=== PATIENT | female | born 1970 | race American Indian/Alaskan Native ===

== ENCOUNTER 2021-08-02 12:41 | Inpatient (IN) | payer OTHER ==
[2021-08-02] MEDS ORDERED: DEXTROSE 50% IN WATER (25GM) 50 ML SYRINGE IV ONE ×4 (12:45→18:49)
--- NOTE | 2021-08-02 12:59 | Emergency Department Report ---
ED Neuro Deficit HPI - General Stated Complaint: POSS CVA Time Seen by Provider: 08/02/21 12:52 - History of Present Illness Initial Comments: Patient presents by EMS for concern of stroke. History is obtained from the patient, EMS, and from family. In essence, the patient was at home with family. They were sitting and conversing. She started complaining of the right side of her tongue feeling numb. The family stated that her right side "went out." This was similar to her prior stroke. They called an ambulance and have the patient transported here. EMS states that the patient seemed more somnolent. They had heard that there was dysarthria and slurred speech. They did not notice a flaccid paralysis on the right. Patient seemed to be more somnolent for EMS. She was transported here. IV had been established. Patient provides minimal history. She continues to state that she does not feel right. She cannot provide any other cogent history at this time. Time of onset was 12 PM based on EMS and family report. Family states that the patient had complained of fatigue over the last week. She could literally get up and go to the bathroom and feel tired and fatigued. She had complained of fatigue today as well. - Related Data Allergies/Adverse Reactions: Allergies Allergy/AdvReac Type Severity Reaction Status Date / Time No Known Allergies Allergy Verified 08/02/21 14:02 ED Review of Systems ROS: Stated complaint: POSS CVA Other details as noted in HPI Comment: All other systems reviewed and negative Constitutional: denies: fever Eyes: denies: vision change ENT: denies: throat pain Respiratory: denies: cough Cardiovascular: denies: chest pain Endocrine: denies: unexplained weight loss Gastrointestinal: denies: vomiting, diarrhea Genitourinary: denies: dysuria Musculoskeletal: denies: back pain Skin: denies: rash Neurological: as per HPI Hematological/Lymphatic: easy bruising ( Due to blood thinners) ED Past Medical Hx - Past Medical History Hx Hypertension: Yes Hx CVA: Yes - Surgical History Past Surgical History?: Yes Additional Surgical History: thrombectomy - Family History Family history: hypertension ED Neuro Physical Exam - General Limitations: Altered Mental Status ( somnolent), Other ( pulse ox was noted and normal) General appearance: in no apparent distress, other ( somnolent but arousable) Suspected Stroke: No - Head Head exam: Present: atraumatic, other ( mild right facial droop. This is at baseline according to family.) - Eye Eye exam: Present: normal appearance, PERRL, EOMI. Absent: scleral icterus - ENT ENT exam: Present: mucous membranes dry, normal external ear exam - Neck Neck exam: Present: normal inspection. Absent: meningismus - Respiratory Respiratory exam: Present: normal lung sounds bilaterally. Absent: respiratory distress - Cardiovascular Cardiovascular Exam: Present: regular rate, normal rhythm - GI/Abdominal GI/Abdominal exam: Present: soft. Absent: tenderness - Extremities Exam Extremities exam: Present: normal capillary refill. Absent: pedal edema - Back Exam Back exam: Absent: CVA tenderness (R), CVA tenderness (L) - Neurological Exam Neurological exam: Present: other ( Somnolent. She does move all extremities.) - NIHSS Assessment Interval: Baseline 1a. Level of Consciousness: arousable/minor stimuli 1b. LOC Questions: answers both correctly 1c. LOC Commands: performs tasks correctly 2. Best Gaze: normal 3. Visual: no visual loss 4. Facial Palsy: minor paralysis 5b. Motor Arm Right: no drift 5a. Motor Arm Left: no drift 6a. Motor Leg Left: no drift 6b. Motor Leg Right: no drift 7. Limb Ataxia: absent 8. Sensory: mild/moderate sensory loss 9. Best Language: mild/moderate aphasia 10. Dysarthria: mild/moderate dysarthria 11. Extinction/Inattention: no abnormality Total Score: 5 Stroke Severity: Moderate Stroke - Psychiatric Psychiatric exam: Present: flat affect - Skin Skin exam: Present: warm, dry ED Course Vital Signs 08/02/21 08/02/21 08/02/21 12:51 13:04 13:49 Pulse Rate 65 58 L Respiratory 19 13 Rate Blood Pressure 163/88 O2 Sat by Pulse 100 97 Oximetry 08/02/21 08/02/21 14:01 14:15 Pulse Rate 53 L 59 L Respiratory 15 19 Rate Blood Pressure 160/98 163/88 O2 Sat by Pulse 98 98 Oximetry - Reevaluation(s) Reevaluation #1: 08/02/21 12:55 Patient was seen upon EMS arrival. D50 was administered based on Accu-Chek. History is obtained from family. Patient was taken to CT. Based on the fact that she is on a DOAC, there would be no indication for TPA. Reevaluation #2: 08/02/21 14:45 CT have been discussed with the radiologist and with neurology. We agreed that there is no indication for thrombolytic therapy. Case was discussed with Dr. Sullivan who will admit. Family was updated. [facility] had been notified. - Lab Data Result diagrams: 08/02/21 12:48 08/02/21 12:48 Lab Results 08/02/21 08/02/21 08/02/21 Range/Units 12:48 12:48 12:48 WBC 5.4 (4.5-11.0) K/mm3 RBC 4.18 (3.65-5.03) M/mm3 Hgb 12.6 (10.1-14.3) gm/dl Hct 36.9 (30.3-42.9) % MCV 88 (79-97) fl MCH 30 (28-32) pg MCHC 34 (30-34) % RDW 16.1 H (13.2-15.2) % Plt Count 198 (140-440) K/mm3 Lymph % (Auto) 34.1 (13.4-35.0) % [place] % (Auto) 6.6 (0.0-7.3) % Eos % (Auto) 1.0 (0.0-4.3) % Baso % (Auto) 0.4 (0.0-1.8) % Lymph # (Auto) 1.8 (1.2-5.4) K/mm3 [place] # (Auto) 0.4 (0.0-0.8) K/mm3 Eos # (Auto) 0.1 (0.0-0.4) K/mm3 Baso # (Auto) 0.0 (0.0-0.1) K/mm3 Seg Neutrophils % 57.9 (40.0-70.0) % Seg Neutrophils # 3.1 (1.8-7.7) K/mm3 PT 20.7 H (12.2-14.9) Sec. INR 1.61 H (0.87-1.13) APTT 38.5 H (24.2-36.6) Sec. Thrombin Time 17.6 (15.1-19.6) Sec. Sodium 139 (137-145) mmol/L Potassium 4.0 (3.6-5.0) mmol/L Chloride 104.1 (98-107) mmol/L Carbon Dioxide 23 (22-30) mmol/L Anion Gap 16 mmol/L BUN 7 (7-17) mg/dL Creatinine 0.8 (0.6-1.2) mg/dL Estimated GFR > 60 ml/min BUN/Creatinine Ratio 9 % Glucose 92 (65-100) mg/dL Calcium 9.9 (8.4-10.2) mg/dL Troponin T 0.212 H* (0.00-0.029) ng/mL Triglycerides 76 (2-149) mg/dL Cholesterol 123 (50-199) mg/dL LDL Cholesterol Direct 63 (50-130) mg/dL HDL Cholesterol 45 (40-59) mg/dL Cholesterol/HDL Ratio 2.73 % Rhythm strip: Normal sinus rhythm without ectopy. Monitor observe 10 sec. - EKG Data -: EKG Interpreted by Me When compared to previous EKG there are: previous EKG unavailable 08/02/21 14:45 EKG shows atrial fibrillation at 45. Patient has diffuse artifact noted. There actually appear to be flutter waves consistent with atrial flutter with a variable block instead of atrial fibrillation. QRS is prolonged at 153. Patient has a right bundle branch block. QT corrected is 419. There is no evidence of ST elevation. - Radiology Data Radiology results: report reviewed - Medical Decision Making Patient presented as a possible stroke alert. Based on her presentation, it is unlikely this represents her CVA. She does have an elevated troponin of unclear etiology. Patient does not complain of chest pain. There is no EKG change suggestive of STEMI. At this time, we will proceed with admission here. She would not be considered stable for transfer. Hospitalist is aware. Serial troponins can be completed. There was no evidence of intracranial bleed. She may benefit from MRI. Critical Care Time: No Critical care attestation.: If time is entered above; I have spent that time in minutes in the direct care of this critically ill patient, excluding procedure time. ED Disposition Clinical Impression: Right sided weakness, Elevated troponin Altered mental status Qualifiers: Altered mental status type: somnolence Qualified Code(s): R40.0 - Somnolence Disposition: 09 ADMITTED INPATIENT Is pt being admited?: Yes Condition: Stable
[2021-08-02 13:12] LABS: Basophils % (Auto) 0.4 % (0.0-1.8); Eosinophils # (Auto) 0.1 K/mm3 (0.0-0.4); Hematocrit 36.9 % (30.3-42.9); Hemoglobin 12.6 gm/dl (10.1-14.3); Lymphocytes # (Auto) 1.8 K/mm3 (1.2-5.4); Lymphocytes % (Auto) 34.1 % (13.4-35.0); Mean Corpuscular HGB Conc 34 % (30-34); Mean Corpuscular Volume 88 fl (79-97); Monocytes # (Auto) 0.4 K/mm3 (0.0-0.8); Monocytes % (Auto) 6.6 % (0.0-7.3); Platelet Count 198 K/mm3 (140-440); Red Blood Count 4.18 M/mm3 (3.65-5.03); Red Cell Distribution Width 16.1 % (13.2-15.2)
[2021-08-02 13:22] LABS: INR 1.61 (0.87-1.13)
[2021-08-02 13:23] LABS: Partial Thromboplastin Time 38.5 Sec. (24.2-36.6); Thrombin Time 17.6 Sec. (15.1-19.6)
--- NOTE | 2021-08-02 13:34 | Cat Scan Report ---
CT HEAD WITHOUT CONTRAST INDICATION / CLINICAL INFORMATION: CODE STROKE PROTOCOL!!! Stroke-like symptoms, Hx of prior stroke. TECHNIQUE: All CT scans at this location are performed using CT dose reduction for ALARA by means of automated exposure control. COMPARISON: None available. FINDINGS: There is no acute intracranial hemorrhage. There is a subacute to chronic appearing infarction in the distribution of the left MCA with hyperdensity seen in the left MCA compatible with thrombus. There is mild exvacuo dilatation of the left lateral ventricle. No hydrocephalus. The paranasal sinuses and mastoid air cells are clear. IMPRESSION: 1. Subacute to chronic appearing infarction in distribution of left MCA. No acute intracranial hemorr janel. If there is concern for acute ischemia, MRI is recommended. IMPORTANT FINDING Time of Communication (QUALITY ASSURANCE SUPERVISOR/CDT): 12:29 PM Licensed Practitioner Receiving Report: Dr. Hammond Signer Name: José Chicas MD Signed: 08/02/2021 1:30 PM Workstation Name: [id number]
[2021-08-02 13:39] LABS: BUN/Creatinine Ratio 9; Blood Urea Nitrogen 7 mg/dL (7-17); Calcium 9.9 mg/dL (8.4-10.2); Hemolysis Index 1
--- NOTE | 2021-08-02 13:50 | Emergency Department Report ---
Blank Doc - Documentation Documentation: [facility] Consult Note # Demographics Consult Type: Acute Stroke Level 1 (0-4.5 hrs) Patient Location: Emergency Room First Name: Tony Last Name: Date of : 1970 Age: 51 Gender: Female Facility: [facility] Time of Initial Page ( Time): 08/02/2021, 12:53 Time of Return Call ( Time): 08/02/2021, 12:53 # HPI History: 51yo F presents with slurred speech, noted first at 1200. does have soem right sided symptoms and speech changes from a prior stroke in february glucose was 68, dextrose was given Context/Pre-existing conditions: pre-existing speech problem # Scores Time of exam and NIHSS ( Time): 08/02/2021, 12:54 Level of Consciousness 1a: [0] = Alert; keenly responsive LOC Questions 1b: [1] = Answers one correctly LOC Commands 1c: [0] = Performs both tasks correctly Best Gaze 2: [0] = Normal Visual 3: [0] = No visual loss Facial Palsy 4: [0] = Normal symmetrical movements Motor Arm Left 5a: [0] = No drift Motor Arm Right 5b: [0] = No drift Motor Leg Left 6a: [0] = No drift Motor Leg Right 6b: [0] = No drift Limb Ataxia 7: [0] = Absent Sensory 8: [0] = Normal Best Language 9: [0] = No aphasia Dysarthria 10: [1] = [id number] dysarthria Extinction and Inattention 11: [0] = No abnormality NIHSS Total: 2 # Exam Mental Status: having some difficulties following commands. medeiros snot appear aphasic, encpehalopathic # Data Head CT: chronic appearing stroke on the left # Assessment Impression: Altered Mental Status # Plan Thrombolytic/Intervention: NOT IV Thrombolysis or IA Intervention candidate Thrombolytic/Intraarterial Exclusion: IV thrombolytic and IA intervention considered but not recommended as this patient's symptoms are not clinically consistent with an assumed diagnosis of stroke Therapy/Evaluation: NPO until swallow evaluation PT/OT evaluation speech/swallow consultation Other: I have discussed my recommendations with the referring provider Additional Recommendations: Metabolic and infectious evaluation. If no cause found then MRI brain for further eval is reasonable # Logistics Telemedicine: Interactive 2 way audio and visual telecommunication technology was utilized during this visit
[2021-08-02 14:00] LABS: Chol/HDL Ratio 2.73 %; HDL Cholesterol 45 mg/dL (40-59); LDL Cholesterol,Direct 63 mg/dL (50-130)
[2021-08-02] MEDS ORDERED: SODIUM CHLORIDE 0.9% 1000 ML 1,000 ML IV ONE (14:00)
--- NOTE | 2021-08-02 14:02 | Cat Scan Report ---
CT angio neck INDICATION / CLINICAL INFORMATION: 51 years Female; CODE STROKE PROTOCOL!!! Stroke-like symptoms, Hx of prior stroke. TECHNIQUE: Thin cut axial images obtained through the head during IV bolus contrast administration. S agittal, coronal, and 3 plane MIP reconstructions performed by the technologist. NASCET type criteria used evaluate stenoses. All CT scans at this location are performed using CT dose reduction for ALAR A by means of automated exposure control. COMPARISON: None available. FINDINGS: CAROTID ARTERIES: There is no significant stenosis involving cervical carotid arteries by NASCET crit eria. The motion and beam hardening degrade the image quality. However, there is focal irregularity of the distal left cervical carotid artery at the level of C2 with linear luminal defect concerning for foca l dissection. This finding is of indeterminate age and correlation be needed given the history of pre vious stroke and any previous outside imaging. Again, there is appear to be significant focal stenosi s. VERTEBRAL ARTERIES: The proximal vertebral arteries are particularly obscured by the degree of motion as well as beam hardening from the dense contrast within the adjacent venous structures at. However, there is no clear CTA evidence of significant stenosis involving visualized cervical vertebral arter ies. 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 ARCH: There is no clear evidence of significant stenosis involving arch vessels. There is development al common origin of the brachiocephalic and left common carotid arteries. ADDITIONAL FINDINGS: Remainder of the surrounding soft tissues are grossly normal. IMPRESSION: There is no CTA evidence of significant focal stenosis involving visualized cervical carotid carotid arteries by NASCET criteria. There is focal irregularity of the distal left cervical carotid artery with linear minimal defect ind icative of focal dissection as detailed above. This finding is of indeterminate age and correlation w ould be needed given the history of previous stroke and any previous outside imaging. 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 Signer Name: Mark Madera MD Signed: 08/02/2021 1:58 PM Workstation Name: [id number]
--- NOTE | 2021-08-02 14:26 | Cat Scan Report ---
CT angio head INDICATION / CLINICAL INFORMATION: 51 years Female; CODE STROKE PROTOCOL!!! Stroke-like symptoms, Hx of prior stroke. TECHNIQUE: Thin cut axial images obtained through the head during IV bolus contrast administration. S agittal, coronal, and 3 plane MIP reconstructions performed by the technologist. NASCET type criteria used evaluate stenoses. Automated exposure control utilized for radiation reduction purposes. COMPARISON: None available. FINDINGS: INTERNAL CAROTID ARTERIES: There is mild calcification involving distal internal carotid arteries wit hout significant stenosis by NASCET criteria. VERTEBROBASILAR SYSTEM: There is developmental hypoplasia the distal right vertebral artery. There is no significant focal stenosis of the basilar artery. CEREBRAL ARTERIES: There is developmental origin of the left posterior cerebral artery. There i s no CTA evidence of significant focal stenosis involving proximal cerebral arteries or visualized ad jacent segments. There is no evidence of large vessel occlusion. There is an older infarct involving the left MCA distribution which correlates with the earlier CT. ANEURYSM: None identified. ADDITIONAL FINDINGS: Remainder of the surrounding soft tissues are grossly normal. IMPRESSION: There is an old left MCA infarct with encephalomalacia which correlates with the earlier CT. There is no clear CTA evidence of acute large vessel occlusion. Signer Name: Mark Madera MD Signed: 08/02/2021 2:22 PM Workstation Name: [id number]
--- NOTE | 2021-08-02 14:45 | History and Physical Report ---
History of Present Illness Chief complaint: Her right side went out History of present illness: 51 YO Female with HTN, CVA, Atrial Fib on Therapeutic anticoagulation presents to ED for evaluation. Patient has dysarthria and provides limited history. Patient states "I think I had a stroke". Patient daughter is at bedside during his exam and interview and provides additional history. As per daughter the patient complained that "her right side went out" this morning. The patient was also noted to have slurred speech. EMS was notified and upon arrival the patient was found to be in distress with a neurologic deficit. A code stroke was called and the patient was subsequently transported to [facility] for further care and evaluation of the aforementioned symptoms. The patient was seen and evaluated in the emergency department. All lab and imaging studies reviewed. Patient found to have clinical symptoms consistent with CVA and was initiated on stroke protocol. Patient also found to have NSTEMI. The patient was continued on therapeutic anticoagulation and admitted to telemetry. Cardiology team consulted in ED. Telemetry neurology consulted in ED. No reports of fever, chills, chest pain, palpitation, productive cough, skin rash, recent contact, or known exposure to COVID-19. No prior admission for review. No medication listed at time of admission for reconciliation. Advanced care planning cond ucted in ED. Past History Past Medical History: atrial fib, hypertension, stroke Past Surgical History: Other (Thrombectomy) Social history: . denies: smoking, alcohol abuse, prescription drug abuse Family history: diabetes, hypertension Medications and Allergies Allergies Allergy/AdvReac Type Severity Reaction Status Date / Time No Known Allergies Allergy Verified 08/02/21 14:02 Active Meds: Active Medications Sodium Chloride (Nacl 0.9% 1000 Ml) 1,000 mls @ 999 mls/hr IV BOLUS ONE Stop: 08/02/21 15:00 Review of Systems ROS unobtainable: due to mental status Exam - Constitutional Vitals: Temp Pulse Resp BP Pulse Ox 59 L 19 163/88 98 08/02/21 14:15 08/02/21 14:15 08/02/21 14:15 08/02/21 14:15 General appearance: Present: mild distress - EENT Eyes: Present: PERRL ENT: clear oral mucosa, hearing decreased - Neck Neck: Present: supple, normal ROM - Respiratory Respiratory effort: normal Respiratory: bilateral: CTA - Cardiovascular Heart Sounds: Present: S1 & S2. Absent: rub, click - Extremities Extremities: pulses symmetrical, No edema Peripheral Pulses: within normal limits - Abdominal General gastrointestinal: Present: soft, non-tender, non-distended, normal bowel sounds Female genitourinary: Present: normal - Musculoskeletal Musculoskeletal: right sided weakness - Psychiatric Psychiatric: cooperative - Neurologic Neurologic: CNII-XII intact, focal deficits, moves all extremities, no gait normal HEART Score - HEART Score Troponin: Troponin T 0.212 ng/mL (0.00-0.029) H* 08/02/21 12:48 Results - Labs CBC & Chem 7: 08/02/21 12:48 08/02/21 12:48 Labs: Abnormal lab results 08/02/21 08/02/21 08/02/21 Range/Units 12:48 12:48 12:48 RDW 16.1 H (13.2-15.2) % PT 20.7 H (12.2-14.9) Sec. INR 1.61 H (0.87-1.13) APTT 38.5 H (24.2-36.6) Sec. Troponin T 0.212 H* (0.00-0.029) ng/mL Assessment and Plan - Patient Problems (1) CVA (cerebral vascular accident) Current Visit: Yes Status: Acute Qualifiers: Precerebral and cerebral artery: middle cerebral artery Laterality of affected vessel: left Plan to address problem: CVA protocol: CT head, telemetry neurology consulted, neuro check, seizure precautions, aspiration precautions, lipid panel, statin therapy, antiplatelet therapy, physical therapy consulted, Occupational Therapy consulted, speech t herapy consulted, carotid Doppler, echocardiogram. (2) NSTEMI (non-ST elevated myocardial infarction) Current Visit: Yes Status: Acute Plan to address problem: Chest pain protocol: Serial cardiac enzymes, EKG, telemetry, morphine, supplemental oxygen, nitro, cardiology team consulted, echocardiogram ordered and is pending at time of admission. (3) Atrial fibrillation Current Visit: Yes Status: Acute Qualifiers: Atrial fibrillation type: longstanding persistent Qualified Code(s): I48.11 - Longstanding persistent atrial fibrillation Plan to address problem: Rate control, continue therapeutic anticoagulation. (4) Hypertension Current Visit: Yes Status: Acute Qualifiers: Hypertension type: primary hypertension Qualified Code(s): I10 - Essential (primary) hypertension Plan to address problem: Monitor blood pressure every shift, permissive hypertension overnight. (5) DVT prophylaxis Current Visit: Yes Status: Acute Plan to address problem: SCD to bilateral lower extremities while in bed, continue therapeutic anticoagulation (6) Advance care planning Current Visit: Yes Status: Acute Plan to address problem: disease education conducted, care plan discussed, diagnoses discussed, prognosis discussed, patient is full code, patient daughter is at bedside and acknowledges understanding and agreement with care plan. +30 minutes
[2021-08-02] MEDS ORDERED: PROMETHAZINE 25 MG RECT SUPP PR PRN (14:52)
[2021-08-02] MEDS ORDERED: oxyCODONE /ACETAMINOPHEN 5-325MG TAB PO PRN (14:52)
[2021-08-02] MEDS ORDERED: ALBUTEROL 2.5 MG/3 ML NEBU IH PRN (14:52)
[2021-08-02] MEDS ORDERED: ACETAMINOPHEN 325 MG TAB PO PRN ×2 (14:52→14:55)
[2021-08-02] MEDS ORDERED: HYDROmorphone 1 MG/1 ML INJ IV PRN (14:52)
[2021-08-02] MEDS ORDERED: MAGNESIUM HYDROXIDE (MOM) ORAL LIQD UDC PO PRN (14:52)
[2021-08-02] MEDS ORDERED: METOCLOPRAMIDE 10 MG TAB PO PRN (14:52)
[2021-08-02] MEDS ORDERED: ONDANSETRON 4 MG/2 ML INJ IV PRN (14:52)
[2021-08-02] MEDS ORDERED: traMADol 50 MG TAB PO PRN (14:55)
[2021-08-02] MEDS ORDERED: NITROGLYCERIN 0.4 MG TAB SUBL SL PRN (14:55)
[2021-08-02] MEDS ORDERED: HEPARIN 10,000 UNITS/10 ML VIAL IV PRN (22:26)
[2021-08-02] MEDS ORDERED: HEPARIN 10,000 UNITS/10 ML VIAL IV ONE (22:56)
[2021-08-02] MEDS ORDERED: HEPARIN/ 0.45% NACL DRIP 25,000 UNIT/500 ML BAG IV SCH (23:00)
[2021-08-02 23:23] LABS: Hematocrit 35.5 % (30.3-42.9); Hemoglobin 11.9 gm/dl (10.1-14.3)
[2021-08-02 23:30] LABS: INR 1.39 (0.87-1.13)
[2021-08-02 23:31] LABS: Partial Thromboplastin Time 36.7 Sec. (24.2-36.6)
--- NOTE | 2021-08-03 08:36 | Progress Note ---
Assessment and Plan Assessment and plan: Acute CVA. NSTEMI. Elevated troponin Atrial fibrillation Hypertension 08/03/2021. Patient with elevated troponin. Continue IV heparin drip per protocol. monitoring tech reveals A. fib/flutter with rate control HR at 45. Cardiology consulted. CT revealed subacute to chronic appearing infarction in left MCA distribution. CTA of the head shows an old left MCA infarct with encephalomalacia. CTA of the neck shows no evidence of stenosis. Follow-up MRI and echocardiogram. Continue secondary prevention with aspirin and Lipitor. Neurology consultation. History Interval history: No new issues overnight Hospitalist Physical - Constitutional Vitals: Temp Pulse Resp BP Pulse Ox 98.1 F 58 L 18 141/78 98 08/03/21 05:22 08/03/21 06:18 08/03/21 05:22 08/03/21 05:22 08/03/21 05:22 General appearance: Present: no acute distress - EENT Eyes: Present: PERRL, EOM intact ENT: hearing intact, clear oral mucosa, dentition normal - Neck Neck: Present: supple, normal ROM - Respiratory Respiratory effort: normal Respiratory: bilateral: CTA - Cardiovascular Rhythm: regular Heart Sounds: Present: S1 & S2. Absent: gallop, rub - Extremities Extremities: no ischemia, No edema, Full ROM - Abdominal General gastrointestinal: soft, non-tender, non-distended, normal bowel sounds - Integumentary Integumentary: Present: clear, warm, dry - Neurologic Neurologic: CNII-XII intact, moves all extremities HEART Score - HEART Score Troponin: Troponin T 0.229 ng/mL (0.00-0.029) H* 08/02/21 20:49 Results - Labs CBC & Chem 7: 08/02/21 22:45 08/02/21 12:48 Labs: Laboratory Last Values WBC 5.4 K/mm3 (4.5-11.0) 08/02/21 12:48 RBC 4.18 M/mm3 (3.65-5.03) 08/02/21 12:48 Hgb 11.9 gm/dl (10.1-14.3) 08/02/21 22:45 Hct 35.5 % (30.3-42.9) 08/02/21 22:45 MCV 88 fl (79-97) 08/02/21 12:48 MCH 30 pg (28-32) 08/02/21 12:48 MCHC 34 % (30-34) 08/02/21 12:48 RDW 16.1 % (13.2-15.2) H 08/02/21 12:48 Plt Count 222 K/mm3 (140-440) 08/02/21 22:45 Lymph % (Auto) 34.1 % (13.4-35.0) 08/02/21 12:48 [place] % (Auto) 6.6 % (0.0-7.3) 08/02/21 12:48 Eos % (Auto) 1.0 % (0.0-4.3) 08/02/21 12:48 Baso % (Auto) 0.4 % (0.0-1.8) 08/02/21 12:48 Lymph # (Auto) 1.8 K/mm3 (1.2-5.4) 08/02/21 12:48 [place] # (Auto) 0.4 K/mm3 (0.0-0.8) 08/02/21 12:48 Eos # (Auto) 0.1 K/mm3 (0.0-0.4) 08/02/21 12:48 Baso # (Auto) 0.0 K/mm3 (0.0-0.1) 08/02/21 12:48 Seg Neutrophils % 57.9 % (40.0-70.0) 08/02/21 12:48 Seg Neutrophils # 3.1 K/mm3 (1.8-7.7) 08/02/21 12:48 PT 18.5 Sec. (12.2-14.9) H 08/02/21 22:44 INR 1.39 (0.87-1.13) H 08/02/21 22:44 APTT 36.7 Sec. (24.2-36.6) H 08/02/21 22:44 Thrombin Time 17.6 Sec. (15.1-19.6) 08/02/21 12:48 Sodium 139 mmol/L (137-145) 08/02/21 12:48 Potassium 4.0 mmol/L (3.6-5.0) 08/02/21 12:48 Chloride 104.1 mmol/L (98-107) 08/02/21 12:48 Carbon Dioxide 23 mmol/L (22-30) 08/02/21 12:48 Anion Gap 16 mmol/L 08/02/21 12:48 BUN 7 mg/dL (7-17) 08/02/21 12:48 Creatinine 0.8 mg/dL (0.6-1.2) 08/02/21 12:48 Estimated GFR > 60 ml/min 08/02/21 12:48 BUN/Creatinine Ratio 9 % 08/02/21 12:48 Glucose 92 mg/dL (65-100) 08/02/21 12:48 POC Glucose 90 mg/dL (70-105) 08/03/21 07:24 Calcium 9.9 mg/dL (8.4-10.2) 08/02/21 12:48 Troponin T 0.229 ng/mL (0.00-0.029) H* 08/02/21 20:49 Triglycerides 76 mg/dL (2-149) 08/02/21 12:48 Cholesterol 123 mg/dL (50-199) 08/02/21 12:48 LDL Cholesterol Direct 63 mg/dL (50-130) 08/02/21 12:48 HDL Cholesterol 45 mg/dL (40-59) 08/02/21 12:48 Cholesterol/HDL Ratio 2.73 % 08/02/21 12:48 Little/IV: Voiding Method Toilet Active Medications - Current Medications Current Medications: Generic Name Dose Route Start Last Admin Trade Name Freq PRN Reason Stop Dose Admin Acetaminophen 650 mg 08/02/21 14:52 Acetaminophen 325 Mg Tab PO Q4H PRN Pain, Mild (1-3) Albuterol 2.5 mg 08/02/21 14:52 Albuterol 2.5 Mg/3 Ml Nebu IH Q3HRT PRN Shortness Of Breath Aspirin 325 mg 08/03/21 10:00 Aspirin 325 Mg Tab PO QDAY SHERRI Atorvastatin Calcium 40 mg 08/02/21 22:00 08/02/21 22:31 Atorvastatin 40 Mg Tab PO 40 mg QHS SHERRI Administration Bisacodyl 10 mg 08/02/21 14:52 Bisacodyl 10 Mg Rect Supp NV QDAY PRN Constipation Heparin Sodium (Porcine) 3,200 unit 08/02/21 22:26 Heparin 10,000 Units/10 Ml Vial 40 unit/kg (3200 unit) IV Q6H PRN Anti-Xa Assay < 0.1 units/ml Hydromorphone HCl 0.5 mg 08/02/21 14:52 Hydromorphone 1 Mg/1 Ml Inj IV Q23H PRN Pain , Severe (7-10) Heparin Sodium/Sodium Chloride 25,000 unit in 500 mls @ 20 mls/hr 08/02/21 23:00 08/02/21 23:52 Heparin/ 0.45% Nacl-25,000 Unit/500 Ml IV 1,000 units/hr TITRATE SHERRI 20 mls/hr Administration Protocol 1,000 UNITS/HR Magnesium Hydroxide 30 ml 08/02/21 14:52 Magnesium Hydroxide (Mom) Oral Liqd Udc PO Q4H PRN Constipation Metoclopramide HCl 10 mg 08/02/21 14:52 Metoclopramide 10 Mg Tab PO Q6H PRN Nausea And Vomiting Nitroglycerin 0.4 mg 08/02/21 14:55 Nitroglycerin 0.4 Mg Tab Subl SL Q5M PRN Chest Pain Ondansetron HCl 4 mg 08/02/21 14:52 Ondansetron 4 Mg/2 Ml Inj IV Q8H PRN Nausea And Vomiting Oxycodone/Acetaminophen 1 tab 08/02/21 14:52 Oxycodone /Acetaminophen 5-325mg Tab PO Q16H PRN Pain, Moderate (4-6) Promethazine HCl 25 mg 08/02/21 14:52 Promethazine 25 Mg Rect Supp NV Q6H PRN Nausea And Vomiting Sodium Chloride 10 ml 08/02/21 14:55 08/02/21 22:31 Sodium Chloride 0.9% 10 Ml Flush Syringe IV 10 ml PRN PRN Administration LINE FLUSH Tramadol HCl 50 mg 08/02/21 14:55 Tramadol 50 Mg Tab PO Q6H PRN Pain, Moderate (4-6)
--- NOTE | 2021-08-03 08:42 | Consultation ---
History of Present Illness Consult date: 08/03/21 Reason for Consult: Right side weakness History of present illness: Her right side went out History of present illness: 51 YO Female with HTN, CVA, Atrial Fib on Therapeutic anticoagulation Eliquis and lipitor ,presents to ED for evaluation. Patient has difficulty with words finding and provides limited history. Patient states "I think I had a stroke". In ER A code stroke was called and the patient was subsequently transported to [facility] for further care and evaluation of the aforementioned symptoms. The patient was seen and evaluated in the emergency department. All lab and imaging studies reviewed. Patient found to have clinical symptoms consistent with CVA and was initiated on stroke protocol. Patient also found to have NSTEMI. The patient was started on IV heparine due to elevated cardiac enzymes as well as acute CVA , Eliquis is on hold ,and admitted to telemetry. Cardiology team consulted in ED. Telemetry neurology consulted in ED. No reports of fever, chills, chest pain, palpitation, productive cough, skin rash, recent contact, or known exposure to COVID-19. No prior admission for review. No medication listed at time of admission for reconciliation. Advanced care planning conducted in ED. Past History Past Medical History: atrial fib, hypertension, stroke Past Surgical History: Other (Thrombectomy) Social history: . denies: smoking, alcohol abuse, prescription drug abuse Family history: diabetes, hypertension Medications and Allergies Allergies Allergy/AdvReac Type Severity Reaction Status Date / Time No Known Allergies Allergy Verified 08/02/21 14:02 Active Meds: Active Medications Sodium Chloride (Nacl 0.9% 1000 Ml) 1,000 mls @ 999 mls/hr IV BOLUS ONE Stop: 08/02/21 15:00 Review of Systems ROS unobtainable: due to mental status Past History Past Medical History: atrial fib, hypertension, stroke Past Surgical History: Other (Thrombectomy) Social history: . denies: smoking, alcohol abuse, prescription drug abuse Family history: diabetes, hypertension Medications and Allergies Allergies Allergy/AdvReac Type Severity Reaction Status Date / Time No Known Allergies Allergy Verified 08/02/21 14:02 Home Medications Medication Instructions Recorded Confirmed Last Taken Type Apixaban [Eliquis] 5 mg PO BID 08/03/21 08/03/21 08/02/21 History AtorvaSTATin [Lipitor] 40 mg PO QHS 08/03/21 08/03/21 08/01/21 History Active Meds: Active Medications Acetaminophen (Acetaminophen 325 Mg Tab) 650 mg PO Q4H PRN PRN Reason: Pain, Mild (1-3) Albuterol (Albuterol 2.5 Mg/3 Ml Nebu) 2.5 mg IH Q3HRT PRN PRN Reason: Shortness Of Breath Aspirin (Aspirin 325 Mg Tab) 325 mg PO QDAY [facility] Atorvastatin Calcium (Atorvastatin 40 Mg Tab) 40 mg PO QHS [facility] Last Admin: 08/02/21 22:31 Dose: 40 mg Documented by: Bisacodyl (Bisacodyl 10 Mg Rect Supp) 10 mg [place] QDAY PRN PRN Reason: Constipation Heparin Sodium (Porcine) (Heparin 10,000 Units/10 Ml Vial) 3,200 unit 40 unit/kg (3200 unit) IV Q6H PRN PRN Reason: Anti-Xa Assay < 0.1 units/ml Hydromorphone HCl (Hydromorphone 1 Mg/1 Ml Inj) 0.5 mg IV Q23H PRN PRN Reason: Pain , Severe (7-10) Heparin Sodium/Sodium Chloride (Heparin/ 0.45% Nacl-25,000 Unit/500 Ml) 25,000 unit in 500 mls @ 20 mls/hr IV TITRATE [facility]; Protocol Last Admin: 08/02/21 23:52 Dose: 1,000 units/hr, 20 mls/hr Documented by: Magnesium Hydroxide (Magnesium Hydroxide (Mom) Oral Liqd Udc) 30 ml PO Q4H PRN PRN Reason: Constipation Metoclopramide HCl (Metoclopramide 10 Mg Tab) 10 mg PO Q6H PRN PRN Reason: Nausea And Vomiting Nitroglycerin (Nitroglycerin 0.4 Mg Tab Subl) 0.4 mg SL Q5M PRN PRN Reason: Chest Pain Ondansetron HCl (Ondansetron 4 Mg/2 Ml Inj) 4 mg IV Q8H PRN PRN Reason: Nausea And Vomiting Oxycodone/Acetaminophen (Oxycodone /Acetaminophen 5-325mg Tab) 1 tab PO Q16H PRN PRN Reason: Pain, Moderate (4-6) Promethazine HCl (Promethazine 25 Mg Rect Supp) 25 mg CA Q6H PRN PRN Reason: Nausea And Vomiting Sodium Chloride (Sodium Chloride 0.9% 10 Ml Flush Syringe) 10 ml IV PRN PRN PRN Reason: LINE FLUSH Last Admin: 08/02/21 22:31 Dose: 10 ml Documented by: Tramadol HCl (Tramadol 50 Mg Tab) 50 mg PO Q6H PRN PRN Reason: Pain, Moderate (4-6) Physical Examination - Vital Signs Vital Signs: Vital Signs Pulse Ox 100 08/02/21 12:51 - Constitutional General appearance: comfortable - EENT EENT: Present: PERRL, mucous membranes moist - Respiratory Respiratory: Present: chest non-tender, lungs clear, rhonchi - Cardiovascular Cardiovascular: Present: other (irregular) Extremities: Present: no peripheral edema bilatateraly, no clubbing, cyanosis - Gastrointestinal Gastrointestinal: Present: normoactive bowel sounds - Integumentary Integumentary: Present: normal - Neurologic Cranial nerve examination: PERRL, EOMI, facial droop Speech examination: other (difficulty with word findings,and slight slurred speech.) Detailed motor examination: other (she is with right pronator drift,legs are intact, planter is down going ,gait is not done.) - Level of Consciousness 1a. Level of Consciousness: alert/keenly responsive - LOC Questions 1b. LOC Questions: answers both correctly - LOC Command 1c. LOC Commands: performs tasks correctly - Best Gaze 2. Best Gaze: normal - Visual 3. Visual: no visual loss - Facial Palsy 4. Facial Palsy: minor paralysis - Motor Arm 5a. Motor Arm Left: no drift 5b. Motor Arm Right: drift - Motor Leg 6a. Motor Leg Left: no drift 6b. Motor Leg Right: no drift - Limb Ataxia 7. Limb Ataxia: absent - Sensory 8. Sensory: normal - Best Language 9. Best Language: mild/moderate aphasia - Dysarthria 10. Dysarthria: normal - Extinction and Inattention 11. Extinction/Inattention: no abnormality - Scoring Total Score: 3 Stroke Severity: Minor Stroke Results - Laboratory Findings CBC and BMP: 08/02/21 22:45 08/02/21 12:48 Abnormal Lab Findings: Abnormal Labs 08/02/21 08/02/21 08/02/21 12:48 12:48 12:48 RDW 16.1 H PT 20.7 H INR 1.61 H APTT 38.5 H POC Glucose Troponin T 0.212 H* 10/17/21 10/17/21 10/17/21 17:55 18:45 19:36 RDW PT INR APTT POC Glucose 63 L 150 H Troponin T 0.214 H* 08/02/21 08/02/21 20:49 22:44 RDW PT 18.5 H INR 1.39 H APTT 36.7 H POC Glucose Troponin T 0.229 H* Assessment and Plan Assessment and Plan - Patient Problems # CVA (cerebral vascular accident) -pt. is with new onset right side weakness and slurred speech and difficulty with words meaning. -CVA protocol: - CT head left mca remote infact -cta brain and neck are unremarkable. - telemetry neurology consulted - neuro check, - seizure precautions, - aspiration precautions, - lipid panel, statin therapy, -hold eliquis started on heparine iv. - physical therapy consulted, - Occupational Therapy consulted, -speech therapy consulted, - echocardiogram. # NSTEMI (non-ST elevated myocardial infarction) -Chest pain protocol: - Serial cardiac enzymes, -EKG, telemetry, morphine, supplemental oxygen, nitro, - cardiology team consulted, - echocardiogram ordered and is pending at time of admission. # Atrial fibrillation -Rate control, - iv heparine until mri brain is done. # Hypertension -Monitor blood pressure every shift, -permissive hypertension overnight. # DVT prophylaxis -SCD to bilateral lower extremities while in bed . # Advance care planning -disease education conducted, -care plan discussed, -diagnoses discussed, -prognosis discussed, -patient is full code, -patient daughter is at bedside and acknowledges understanding and agreement w ith care plan. will follow
--- NOTE | 2021-08-03 09:56 | Vascular Lab Report ---
VL carotid duplex BILAT INDICATION / CLINICAL INFORMATION: stroke COMPARISON: None available. FINDINGS: RIGHT CAROTID: - CCA velocity: 56 cm/sec. - ICA peak systolic velocity: 81 cm/sec. - ICA/CCA PSV Ratio: Less than 2 Right Vertebral Artery: Antegrade flow. LEFT CAROTID: - CCA velocity: 52 cm/sec. - ICA peak systolic velocity: 96 cm/sec. - ICA/CCA PSV Ratio: Less than 2 Left Vertebral Artery: Antegrade flow. IMPRESSION: 1. No occlusion or hemodynamically significant stenosis of the bilateral carotid arteries. Velocity criteria are extrapolated from diameter data as defined by the Society of Radiologists in Ul trasound Consensus Conference, Radiology 2003; 229;340-346. NO STENOSIS (NORMAL) * Plaque = none; ICA PSV < 125 cm/sec; ICA/CCA PSV Ratio < 2.0 <50% STENOSIS * Plaque < 50%; ICA PSV < 125 cm/sec; ICA/CCA PSV Ratio < 2.0 50-69% STENOSIS * Plaque > 50%; ICA PSV = 125-230 cm/sec; ICA/CCA PSV Ratio = 2.0-4.0 >70% BUT <100% STENOSIS * Plaque > 50%; ICA PSV > 230 cm/sec; ICA/CCA PSV Ratio > 4.0 NEAR OCCLUSION * Plaque = visible lumen; ICA PSV = high/low/none; ICA/CCA PSV Ratio = variable TOTAL OCCLUSION * Plaque = no lumen; ICA PSV = none; ICA/CCA PSV Ratio = N/A Signer Name: Lennox Delgado MD Signed: 08/03/2021 9:51 AM Workstation Name: [id number]
[2021-08-03] MEDS ORDERED: ASPIRIN 325 MG TAB PO SCH (10:00)
--- NOTE | 2021-08-03 12:21 | Consultation ---
History of Present Illness Consult date: 08/03/21 Consult reason: atrial fibrillation, other (Coronary artery disease) History of present illness: This patient is a 51-year-old woman who has an extensive recent cardiovascular history. 4 months ago, she was hospitalized at [facility] with chest pain, subsequently diagnosed with a non-ST elevation myocardial infarctio n. She underwent cardiac catheterization with placement of a coronary stent. The details of her anatomy not available at this time for review. Family member I spoke with on the phone reports that during that hospitalization, she also suffered an acute CVA, manifested by speech impairment and right hemiparesis. It was also noted that she had atrial fibrillation during that hospitalization, associated with the CVA, eventually treated with antiplatelet therapy Plavix and oral anticoagulation Eliquis. The family member states that there was a discussion about possible cardioversion but this was deferred. Her outpatient cardiac follow-up subsequent to that was with [facility]. She underwent outpatient physical rehabilitation, but was left with still mild right-sided hemiparesis and expressive dysphasia. She presents to this hospital at this time with complaints of some left-sided facial droop, slurring of her speech, which alerted the family members to a possible new CVA. Patient reports full compliance with her Eliquis 5 mg twice daily, but on my discussion with her I cannot ascertain her full compliance with her Plavix. She denies being on aspirin. On her presentation, there is no chest pain, no shortness of breath, no palpitations and no lower extremity edema. She specifically reports that she has no symptoms that are reminiscent of her acute MA presentation 4 months ago. EKG in the hospital is atrial fibrillation with well-controlled ventricular response, and an underlying right bundle branch block. Patient is currently comfortable in her room on the telemetry floor, was placed on intravenous heparin per the neurologist for management of her acute CVA. Past History Past Medical History: atrial fib, CAD, hypertension, stroke Past Surgical History: PTCA, Other (Thrombectomy) Social history: . denies: smoking, alcohol abuse, prescription drug abuse Family history: diabetes, hypertension Medications and Allergies Allergies Allergy/AdvReac Type Severity Reaction Status Date / Time No Known Allergies Allergy Verified 08/02/21 14:02 Home Medications Medication Instructions Recorded Confirmed Last Taken Type Apixaban [Eliquis] 5 mg PO BID 08/03/21 08/03/21 08/02/21 History AtorvaSTATin [Lipitor] 40 mg PO QHS 08/03/21 08/03/21 08/01/21 History Active Meds: Active Medications Acetaminophen (Acetaminophen 325 Mg Tab) 650 mg PO Q4H PRN PRN Reason: Pain, Mild (1-3) Albuterol (Albuterol 2.5 Mg/3 Ml Nebu) 2.5 mg IH Q3HRT PRN PRN Reason: Shortness Of Breath Atorvastatin Calcium (Atorvastatin 40 Mg Tab) 40 mg PO QHS [facility] Last Admin: 08/02/21 22:31 Dose: 40 mg Documented by: Bisacodyl (Bisacodyl 10 Mg Rect Supp) 10 mg [place] QDAY PRN PRN Reason: Constipation Heparin Sodium (Porcine) (Heparin 10,000 Units/10 Ml Vial) 3,200 unit 40 unit/kg (3200 unit) IV Q6H PRN PRN Reason: Anti-Xa Assay < 0.1 units/ml Hydromorphone HCl (Hydromorphone 1 Mg/1 Ml Inj) 0.5 mg IV Q23H PRN PRN Reason: Pain , Severe (7-10) Heparin Sodium/Sodium Chloride (Heparin/ 0.45% Nacl-25,000 Unit/500 Ml) 25,000 unit in 500 mls @ 20 mls/hr IV TITRATE [facility]; Protocol Last Admin: 08/02/21 23:52 Dose: 1,000 units/hr, 20 mls/hr Documented by: Magnesium Hydroxide (Magnesium Hydroxide (Mom) Oral Liqd Udc) 30 ml PO Q4H PRN PRN Reason: Constipation Metoclopramide HCl (Metoclopramide 10 Mg Tab) 10 mg PO Q6H PRN PRN Reason: Nausea And Vomiting Nitroglycerin (Nitroglycerin 0.4 Mg Tab Subl) 0.4 mg SL Q5M PRN PRN Reason: Chest Pain Ondansetron HCl (Ondansetron 4 Mg/2 Ml Inj) 4 mg IV Q8H PRN PRN Reason: Nausea And Vomiting Oxycodone/Acetaminophen (Oxycodone /Acetaminophen 5-325mg Tab) 1 tab PO Q16H PRN PRN Reason: Pain, Moderate (4-6) Promethazine HCl (Promethazine 25 Mg Rect Supp) 25 mg WI Q6H PRN PRN Reason: Nausea And Vomiting Sodium Chloride (Sodium Chloride 0.9% 10 Ml Flush Syringe) 10 ml IV PRN PRN PRN Reason: LINE FLUSH Last Admin: 08/02/21 22:31 Dose: 10 ml Documented by: Tramadol HCl (Tramadol 50 Mg Tab) 50 mg PO Q6H PRN PRN Reason: Pain, Moderate (4-6) Review of Systems Cardiovascular: no chest pain, no orthopnea, no palpitations, no rapid/irregular heart beat, no edema, no syncope, no lightheadedness, no shortness of breath Physical Examination Vital Signs Pulse Ox 100 08/02/21 12:51 General appearance: no acute distress HEENT: Positive: PERRL Neck: Positive: neck supple Cardiac: Positive: irregularly irregular Lungs: Positive: clear to auscultation Neuro: Positive: Weakness (Right side hemiparesis) Abdomen: Positive: Soft Female genitourinary: deferred Skin: Positive: Clear Extremities: Absent: edema Results 08/02/21 22:45 08/02/21 12:48 Coagulation 08/02/21 08/02/21 Range/Units 12:48 22:44 PT 20.7 H 18.5 H (12.2-14.9) Sec. INR 1.61 H 1.39 H (0.87-1.13) APTT 38.5 H 36.7 H (24.2-36.6) Sec. Lipids 08/02/21 Range/Units 12:48 Triglycerides 76 (2-149) mg/dL Cholesterol 123 (50-199) mg/dL HDL Cholesterol 45 (40-59) mg/dL Cholesterol/HDL Ratio 2.73 % CBC 08/02/21 08/02/21 Range/Units 12:48 22:45 WBC 5.4 (4.5-11.0) K/mm3 RBC 4.18 (3.65-5.03) M/mm3 Hgb 12.6 11.9 (10.1-14.3) gm/dl Hct 36.9 35.5 (30.3-42.9) % Plt Count 198 222 (140-440) K/mm3 Lymph # (Auto) 1.8 (1.2-5.4) K/mm3 [place] # (Auto) 0.4 (0.0-0.8) K/mm3 Eos # (Auto) 0.1 (0.0-0.4) K/mm3 Baso # (Auto) 0.0 (0.0-0.1) K/mm3 Comprehensive Metabolic Panel 08/02/21 Range/Units 12:48 Sodium 139 (137-145) mmol/L Potassium 4.0 (3.6-5.0) mmol/L Chloride 104.1 (98-107) mmol/L Carbon Dioxide 23 (22-30) mmol/L BUN 7 (7-17) mg/dL Creatinine 0.8 (0.6-1.2) mg/dL Glucose 92 (65-100) mg/dL Calcium 9.9 (8.4-10.2) mg/dL EKG interpretations - Telemetry EKG Rhythm: Atrial Fibrillation Assessment and Plan - Patient Problems (1) Coronary artery disease Current Visit: Yes Status: Acute Plan to address problem: The patient has coronary artery disease, underwent coronary stenting 4 months ago. On this presentation, there is no chest pain, no symptoms some is reminiscent of her prior myocardial infarction. There are no ST changes on the EKG. The troponin levels measured were 0.21, unchanged on 3 serial measurements. There is no clinical or ECG evidence of acute stent thrombosis or occlusion, but we will immediately resume Plavix therapy with a 300 mg bolus. After patient is stable from the CVA, will consider noninvasive ischemic evaluation of her coronary artery disease. We will request anatomical details of her coronary intervention from [facility]. (2) Atrial fibrillation Current Visit: Yes Status: Acute Qualifiers: Atrial fibrillation type: longstanding persistent Qualified Code(s): I48.11 - Longstanding persistent atrial fibrillation Plan to address problem: Atrial fibrillation is currently persistent, probably chronic. We will continue rate control strategy. Low-dose metoprolol 25 mg daily, continue oral anticoagulation when the neurologist recommends. For now, neurologist has recommended intravenous heparin for anticoagulation targeted to the suspected new CVA.
[2021-08-03] MEDS ORDERED: METOPROLOL SUCCINATE XL 25 MG TAB PO SCH (13:00)
[2021-08-03] MEDS ORDERED: CLOPIDOGREL 300 MG TAB PO SCH (13:00)
[2021-08-03] MEDS: LOSARTAN 50 MG TAB PO SCH (17:58)
--- NOTE | 2021-08-03 19:37 | Magnetic Resonance Report ---
MRI BRAIN WITHOUT CONTRAST INDICATION / CLINICAL INFORMATION: CVA. TECHNIQUE: Multiplanar, multisequence MR images of the brain were obtained. COMPARISON: Head CT 08/02/2021 FINDINGS: BRAIN / INTRACRANIAL CONTENTS: Focal dilatation of cortical sulci in the region of the lateral left t emporal lobe and left frontal operculum is demonstrated. Elsewhere, the cortical sulci are normal in size and configuration. There is mild ex vacuo dilatation of the left lateral ventricle. Right latera l ventricle and third ventricle have a normal appearance. There is no mass effect. No evidence of int racranial hemorrhage or extra-axial fluid collection is seen. Encephalomalacia is demonstrated involv ing portions of the left frontal and left parietal lobe and left temporal lobe secondary to remote, l arge, left MCA infarction. Hyperintensity is seen in gyriform distribution on T1-weighted images kisha cating probable cortical laminar necrosis in these regions. Incidental note is made of dilated periva scular spaces (Virchow Kirill spaces) in the right gangliocapsular region. No additional areas of abno rmal brain parenchymal signal intensity are identified. There is no indication of remote cortical inf arction. Diffusion weighted scans are negative. There is no indication of acute ischemic injury. The brainstem and cerebellum have an unremarkable appearance. MIDLINE STRUCTURES:No abnormalities are seen to involve the pituitary gland. Pineal region has an unr emarkable appearance. CRANIOCERVICAL JUNCTION: No abnormalities are identified at the craniocervical junction. VASCULAR FLOW-VOIDS: Normal flow-voids are present within the major intracranial vessels. ORBITS: The orbits have an unremarkable appearance. SINUSES / MASTOIDS: There is no indication of inflammatory disease in the paranasal sinuses or mastoi d air cells. IMPRESSION: 1. Remote, large left MCA infarction with ex vacuo dilatation of the left lateral ventricle, adjacent cortical sulci and left sylvian fissure. 2. No acute intracranial abnormality. Signer Name: Jasmeet Ta MD Signed: 08/03/2021 7:32 PM Workstation Name: [id number]
[2021-08-04 06:19] LABS: Hematocrit 35.4 % (30.3-42.9); Hemoglobin 12.2 gm/dl (10.1-14.3)
[2021-08-04] MEDS: CLOPIDOGREL 75 MG TAB PO SCH (09:40)
[2021-08-04] MEDS: LOSARTAN 50 MG TAB PO SCH (09:40)
--- NOTE | 2021-08-04 09:47 | Progress Note ---
Assessment and Plan Coronary artery disease status post mechanical thrombectomy and PCI of the OM2 at [facility] 03/2021. on plavix and aspirin Prior myocardial infarction Elevated troponin levels unchanged on 3 serial measurements. Atrial fibrillation, chronic Eliquis has been resumed as per recommendation of the neurologist Suspected new CVA Recommendations: Avoid AV samuel blocking agents due to atrial flutter with a slow ventricular response. Will check a TSH. Continue current medical management for coronary artery disease and chronic atrial fibrillation. Subjective Date of service: 08/04/21 Interval history: Patient is resting in bed and appears comfortable. She has no cardiac compl aints. It is reported atrial flutter with a slow ventricular rate in the 40's overnight on telemetry. Low dose Metoprolol was discontinued. Currently shows atrial flutter with a well controlled ventricular rate in the 70's. Objective Vital Signs Temp Pulse Resp BP BP Pulse Ox 08/04/21 06:51 36 L 08/04/21 03:23 97.6 F 48 L 12 137/83 98 08/03/21 23:29 98.0 F 40 L 12 119/71 100 08/03/21 22:36 54 L 18 100 08/03/21 19:33 97.8 F 47 L 14 130/85 97 08/03/21 17:59 76 08/03/21 17:58 76 08/03/21 11:21 98.5 F 63 16 136/88 - Physical Examination General: No Apparent Distress HEENT: Positive: PERRL Neck: Positive: neck supple Cardiac: Positive: irregularly irregular Lungs: Positive: Decreased Breath Sounds Neuro: Positive: Weakness (Right side hemiparesis) Abdomen: Positive: Soft Extremities: Absent: edema - Labs and Meds CBC 08/04/21 Range/Units 04:31 Hgb 12.2 (10.1-14.3) gm/dl Hct 35.4 (30.3-42.9) % Plt Count 196 (140-440) K/mm3
[2021-08-04] MEDS ORDERED: ASPIRIN EC 81 MG TAB PO SCH ×2 (10:00→11:00)
--- NOTE | 2021-08-04 10:56 | Electrocardiograph Report ---
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
[2021-08-04] MEDS: APIXABAN 5 MG TAB PO SCH ×2 (11:05→22:20)
--- NOTE | 2021-08-04 11:17 | Progress Note ---
Assessment and Plan Assessment and Plan - Patient Problems # CVA (cerebral vascular accident) -pt. is with new onset right side weakness and slurred speech and difficulty with words meaning. -CVA protocol: - CT head left mca remote infact -cta brain and neck are unremarkable. - telemetry neurology consulted - neuro check, - seizure precautions, - aspiration precautions, - lipid panel, statin therapy, -hold eliquis started on heparine iv. - physical therapy consulted, - Occupational Therapy consulted, -speech therapy consulted, - echocardiogram is pending -MRI brain showed no acute event # NSTEMI (non-ST elevated myocardial infarction) -Chest pain protocol: - Serial cardiac enzymes, -EKG, telemetry, morphine, supplemental oxygen, nitro, - cardiology team consulted, - echocardiogram ordered and is pending at time of admission. # Atrial fibrillation -Rate control, - iv heparine to stop -restart her eliquis # Hypertension -Monitor blood pressure every shift, -permissive hypertension overnight. # DVT prophylaxis -SCD to bilateral lower extremities while in bed . # Advance care planning -disease education conducted, -care plan discussed, -diagnoses discussed, -prognosis discussed, -patient is full code, -patient daughter is at bedside and acknowledges understanding and agreement with care plan. PLAN 1- Recommend restart eliquis 2- Antilipid agent as per cardiology 3- Stop ASA and maintain Plavix if possible { she is complaining of bruses from Plavix and she stopped taking previously to D/W cardiology 4- Review echo result. 5- Arrange for speech and Pt therapy will sign off Subjective Date of service: 08/04/21 Interval history: she is doing well , no complain but had problem with Plavix it result in bruses MRI brain is noted echo is pending she denied CP or worsening right side weakness Objective - Vital Sign Vital Signs - 12hr 08/03/21 08/04/21 08/04/21 23:29 03:23 06:51 Temperature 98.0 F 97.6 F Pulse Rate 40 L 48 L 36 L Respiratory 12 12 Rate Blood Pressure 119/71 137/83 O2 Sat by Pulse 100 98 Oximetry 08/04/21 09:04 Temperature Pulse Rate 47 L Respiratory 16 Rate Blood Pressure 128/72 O2 Sat by Pulse 100 Oximetry - General Apperance Constitutional: comfortable - EENT EENT: PERRL - Respiratory Respiratory: lungs clear, rhonchi - Cardiovascular Cardiovascular: other (irregular) Extremities: no peripheral edema bilat - Gastrointestinal Gastrointestinal: normoactive bowel sounds - Integumentary Integumentary: normal - Neurologic Cranial nerve examination: PERRL, EOMI, facial droop Speech examination: motor aphasia Detailed motor examination: other (right pronator drift ) - Laboratory Findings CBC and BMP: 08/04/21 04:31 08/02/21 12:48 Abnormal Lab Findings: Abnormal Labs 08/02/21 08/02/21 08/02/21 12:48 12:48 12:48 RDW 16.1 H PT 20.7 H INR 1.61 H APTT 38.5 H Heparin Anti-Xa Level POC Glucose Troponin T 0.212 H* 08/02/21 08/02/21 08/02/21 17:55 18:45 19:36 RDW PT INR APTT Heparin Anti-Xa Level POC Glucose 63 L 150 H Troponin T 0.214 H* 08/02/21 08/02/21 08/03/21 20:49 22:44 06:53 RDW PT 18.5 H INR 1.39 H APTT 36.7 H Heparin Anti-Xa Level 1.92 H POC Glucose Troponin T 0.229 H* 08/04/21 08/04/21 04:31 07:47 RDW PT INR APTT Heparin Anti-Xa Level 0.94 H POC Glucose 119 H Troponin T
[2021-08-04 11:20] LABS: Hematocrit 36.8 % (30.3-42.9); Hemoglobin 12.2 gm/dl (10.1-14.3); Mean Corpuscular HGB Conc 33 % (30-34); Mean Corpuscular Volume 89 fl (79-97); Platelet Count 200 K/mm3 (140-440); Red Blood Count 4.13 M/mm3 (3.65-5.03)
[2021-08-04 11:31] LABS: INR 1.16 (0.87-1.13)
[2021-08-04 11:32] LABS: Partial Thromboplastin Time 35.7 Sec. (24.2-36.6)
--- NOTE | 2021-08-04 18:52 | Progress Note ---
Assessment and Plan Assessment and plan: History of large left MCA infarct in 03/2021 with mild right hemiparesis and sensory aphasia Presented with the worsening stroke symptoms concerning for a new CVA MRI negative for acute stroke. 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 BP was noted to be significantly elevated in the time of presentation Currently neurological status at her baseline Optimize blood pressure control and continue statin Chronic atrial flutter Slow ventricular response metoprolol 25 mg, discontinued today Likely has underlying sinus node dysfunction, cardiology recommends discontinuation of AV samuel agents. DE in 03/2001 at [facility], status post left circumflex stent Mild troponin elevation but flat x3 Echocardiogram done today shows a four-chamber cardiomyopathy, left ventricular ejection fraction 35 to 40%, moderate concentric left ventricular hypertrophy and a dilated left atrium that measures 4.7 cm. Cardiology recommends dual platelet therapy plus anticoagulation given the history of chronic atrial flutter and recent CVA and DE. Patient does give history of bruising for which she quit taking Plavix. Platelet count adequate, 200. Hypertension 08/03/2021. Patient with elevated troponin. Continue IV heparin drip per protocol. teletypesetter monitor reveals A. fib/flutter with rate control HR at 45. Cardiology consulted. CT revealed subacute to chronic appearing infarction in left MCA distribution. CTA of the head shows an old left MCA infarct with encephalomalacia. CTA of the neck shows no evidence of stenosis. Follow-up MRI and echocardiogram. Continue secondary prevention with aspirin and Lipitor. Neurology consultation. 08/04/2021: Patient mental status and neurological status appear be at her baseline currently. She remains in the atrial flutter which is chronic with slow ventricular response, 30 to 50s on Toprol oh 5 mg which is discontinued today. Spoke to sister today, patient has a chronic right hemiparesis with a limping gait and chronic sensory aphasia with inability to use appropriate words. She lives with his family. She presented with worsening no stroke symptoms concerning for new CVA. However, MRI brain shows no acute stroke. TIA cannot be ruled out. Patient quit taking Plavix for bruising. However, since that she had a large left MCA infarct as well as DE needing stent to left circumflex in 03/2021 at [facility], [place], cardiology recommends dual antiplatelet therapy as well as Eliquis. Discussed with patient, sister, employment evaluator/case manager updated with [place] physician. Likely discharge in the morning. Patient will have follow-up with her [place] PCP in 1 week. History Interval history: Patient mental status and neurological status appear be at her baseline currently. She remains in the atrial flutter which is chronic with slow ventricular response, 30 to 50s on Toprol oh 5 mg which is discontinued today. Spoke to sister today, patient has a chronic right hemiparesis with a limping gait and chronic sensory aphasia with inability to use appropriate words. She lives with his family. She presented with worsening no stroke symptoms concerning for new CVA. However, MRI brain shows no acute stroke. TIA cannot be ruled out. Patient quit taking Plavix for bruising. However, since that she had a large left MCA infarct as well as DE needing stent to left circumflex in 03/2021 at [facility], [place], cardiology recommends dual antiplatelet therapy as well as Eliquis. Hospitalist Physical - Constitutional Vitals: Temp Pulse Resp BP Pulse Ox 97.6 F 47 L 18 128/72 100 08/04/21 03:23 08/04/21 09:04 08/04/21 10:00 08/04/21 09:04 08/04/21 10:00 General appearance: Present: no acute distress, well-nourished - EENT Eyes: Present: PERRL, EOM intact ENT: hearing intact, clear oral mucosa - Neck Neck: Present: supple. Absent: masses or JVD - Respiratory Respiratory effort: normal Respiratory: bilateral: CTA - Cardiovascular Rhythm: irregularly irregular - Extremities Extremities: No edema Peripheral Pulses: within normal limits - Abdominal General gastrointestinal: soft, non-tender, non-distended, normal bowel sounds - Integumentary Integumentary: Absent: rash - Neurologic Neurologic: other (Alert and oriented, mild right hemiparesis sensory aphasia with difficulty using appropriate words. Comprehension is fairly intact. No dysarthria. Gait not tested. [id number] is normal.) HEART Score - HEART Score Troponin: Troponin T 0.229 ng/mL (0.00-0.029) H* 08/02/21 20:49 Results - Labs CBC & Chem 7: 08/04/21 10:35 08/04/21 10:35 Labs: Laboratory Last Values WBC 5.4 K/mm3 (4.5-11.0) 08/04/21 10:35 RBC 4.13 M/mm3 (3.65-5.03) 08/04/21 10:35 Hgb 12.2 gm/dl (10.1-14.3) 08/04/21 10:35 Hct 36.8 % (30.3-42.9) 08/04/21 10:35 MCV 89 fl (79-97) 08/04/21 10:35 MCH 30 pg (28-32) 08/04/21 10:35 MCHC 33 % (30-34) 08/04/21 10:35 RDW 16.0 % (13.2-15.2) H 08/04/21 10:35 Plt Count 200 K/mm3 (140-440) 08/04/21 10:35 Lymph % (Auto) 34.1 % (13.4-35.0) 08/02/21 12:48 [place] % (Auto) 6.6 % (0.0-7.3) 08/02/21 12:48 Eos % (Auto) 1.0 % (0.0-4.3) 08/02/21 12:48 Baso % (Auto) 0.4 % (0.0-1.8) 08/02/21 12:48 Lymph # (Auto) 1.8 K/mm3 (1.2-5.4) 08/02/21 12:48 [place] # (Auto) 0.4 K/mm3 (0.0-0.8) 08/02/21 12:48 Eos # (Auto) 0.1 K/mm3 (0.0-0.4) 08/02/21 12:48 Baso # (Auto) 0.0 K/mm3 (0.0-0.1) 08/02/21 12:48 Seg Neutrophils % 57.9 % (40.0-70.0) 08/02/21 12:48 Seg Neutrophils # 3.1 K/mm3 (1.8-7.7) 08/02/21 12:48 PT 16.0 Sec. (12.2-14.9) H 08/04/21 10:35 INR 1.16 (0.87-1.13) H 08/04/21 10:35 APTT 35.7 Sec. (24.2-36.6) 08/04/21 10:35 Thrombin Time 17.6 Sec. (15.1-19.6) 08/02/21 12:48 Heparin Anti-Xa Level 0.94 U.I./ml (0.3-0.7) H 08/04/21 04:31 Sodium 139 mmol/L (137-145) 08/02/21 12:48 Potassium 4.0 mmol/L (3.6-5.0) 08/02/21 12:48 Chloride 104.1 mmol/L (98-107) 08/02/21 12:48 Carbon Dioxide 23 mmol/L (22-30) 08/02/21 12:48 Anion Gap 16 mmol/L 08/02/21 12:48 BUN 7 mg/dL (7-17) 08/02/21 12:48 Creatinine 0.8 mg/dL (0.6-1.2) 08/04/21 10:35 Estimated GFR > 60 ml/min 08/04/21 10:35 BUN/Creatinine Ratio 9 % 08/02/21 12:48 Glucose 92 mg/dL (65-100) 08/02/21 12:48 POC Glucose 134 mg/dL (70-105) H 08/04/21 15:50 Calcium 9.9 mg/dL (8.4-10.2) 08/02/21 12:48 Troponin T 0.229 ng/mL (0.00-0.029) H* 08/02/21 20:49 Triglycerides 76 mg/dL (2-149) 08/02/21 12:48 Cholesterol 123 mg/dL (50-199) 08/02/21 12:48 LDL Cholesterol Direct 63 mg/dL (50-130) 08/02/21 12:48 HDL Cholesterol 45 mg/dL (40-59) 08/02/21 12:48 Cholesterol/HDL Ratio 2.73 % 08/02/21 12:48 Little/IV: Voiding Method Toilet Active Medications - Current Medications Current Medications: Generic Name Dose Route Start Last Admin Trade Name Freq PRN Reason Stop Dose Admin Acetaminophen 650 mg 08/02/21 14:52 Acetaminophen 325 Mg Tab PO Q4H PRN Pain, Mild (1-3) Albuterol 2.5 mg 08/02/21 14:52 Albuterol 2.5 Mg/3 Ml Nebu IH Q3HRT PRN Shortness Of Breath Apixaban 5 mg 08/04/21 10:00 08/04/21 11:05 Apixaban 5 Mg Tab PO 5 mg Q12HR SHERRI Administration Protocol Aspirin 81 mg 08/04/21 11:00 08/04/21 11:05 Aspirin Ec 81 Mg Tab PO 81 mg QDAY SHERRI Administration Atorvastatin Calcium 40 mg 08/02/21 22:00 08/03/21 21:20 Atorvastatin 40 Mg Tab PO 40 mg QHS SHERRI Administration Bisacodyl 10 mg 08/02/21 14:52 Bisacodyl 10 Mg Rect Supp MO QDAY PRN Constipation Clopidogrel Bisulfate 75 mg 08/04/21 10:00 08/04/21 09:40 Clopidogrel 75 Mg Tab PO 75 mg QDAY SHERRI Administration Losartan Potassium 50 mg 08/03/21 13:00 08/04/21 09:40 Losartan 50 Mg Tab PO 50 mg QDAY SHERRI Administration Magnesium Hydroxide 30 ml 08/02/21 14:52 Magnesium Hydroxide (Mom) Oral Liqd Udc PO Q4H PRN Constipation Nitroglycerin 0.4 mg 08/02/21 14:55 Nitroglycerin 0.4 Mg Tab Subl SL Q5M PRN Chest Pain Sodium Chloride 10 ml 08/02/21 14:55 08/03/21 21:20 Sodium Chloride 0.9% 10 Ml Flush Syringe IV 10 ml PRN PRN Administration LINE FLUSH Tramadol HCl 50 mg 08/02/21 14:55 Tramadol 50 Mg Tab PO Q6H PRN Pain, Moderate (4-6)
[2021-08-05 06:19] LABS: Basophils % (Auto) 0.6 % (0.0-1.8); Eosinophils # (Auto) 0.1 K/mm3 (0.0-0.4); Eosinophils % (Auto) 2.5 % (0.0-4.3); Hemoglobin 12.1 gm/dl (10.1-14.3); Lymphocytes # (Auto) 1.2 K/mm3 (1.2-5.4); Lymphocytes % (Auto) 30.6 % (13.4-35.0); Mean Corpuscular HGB Conc 33 % (30-34); Mean Corpuscular Volume 88 fl (79-97); Monocytes # (Auto) 0.4 K/mm3 (0.0-0.8); Monocytes % (Auto) 9.7 % (0.0-7.3); Platelet Count 181 K/mm3 (140-440); Red Cell Distribution Width 16.2 % (13.2-15.2)
[2021-08-05 06:53] LABS: Alanine Aminotransferase 8 units/L (7-56); Albumin 3.7 g/dL (3.9-5); Blood Urea Nitrogen 7 mg/dL (7-17); Calcium 9.2 mg/dL (8.4-10.2); Hemolysis Index 5
[2021-08-05 06:54] LABS: BUN/Creatinine Ratio 10
--- NOTE | 2021-08-05 09:07 | Progress Note ---
Assessment and Plan Coronary artery disease status post mechanical thrombectomy and PCI of the OM2 at [facility] 03/2021. on plavix and aspirin Dilated cardiomyopathy Echocardiogram done today shows a four-chamber cardiomyopathy, LVEF 35-40%, moderate left ventricular hypertrophy and a dilated left atrium that measures 4.7 cm. Prior myocardial infarction Elevated troponin levels unchanged on 3 serial measurements. Atrial fibrillation, chronic low dose metoprolol discontinued due to underlying sinus node dysfunction. normal TSH Recurrent CVA Eliquis has been resumed as per recommendation of the neurologist Recommendations: Continue medical therapy for coronary artery disease, chronic atrial fibrillation and recurrent CVA, including triple therapy with baby aspirin, Plavix, and Eliquis. Unfortunately, patient is unable to tolerate beta-blockers even at low dose, due to underlying sinus node dysfunction. Subjective Date of service: 08/05/21 Interval history: Patient has no cardiac complaints. Objective Vital Signs Temp Pulse Resp BP Pulse Ox 08/05/21 07:30 98.2 F 49 L 16 126/90 98 08/05/21 06:00 46 L 08/05/21 03:47 98.2 F 46 L 14 135/80 98 08/04/21 23:18 98.2 F 45 L 14 129/83 100 08/04/21 22:00 46 L 99 08/04/21 19:17 98.4 F 52 L 12 129/91 100 08/04/21 14:00 47 L 08/04/21 10:00 18 100 08/04/21 09:04 47 L 16 128/72 100 - Physical Examination General: No Apparent Distress HEENT: Positive: PERRL Neck: Positive: neck supple Cardiac: Positive: irregularly irregular Lungs: Positive: Decreased Breath Sounds Neuro: Positive: Weakness (Right side hemiparesis) Abdomen: Positive: Soft Extremities: Absent: edema - Labs and Meds Cardiac Enzymes 08/05/21 Range/Units 05:55 AST 13 (5-40) units/L Coagulation 08/04/21 Range/Units 10:35 PT 16.0 H (12.2-14.9) Sec. INR 1.16 H (0.87-1.13) APTT 35.7 (24.2-36.6) Sec. CBC 08/04/21 08/05/21 Range/Units 10:35 05:55 WBC 5.4 4.0 L (4.5-11.0) K/mm3 RBC 4.13 4.20 (3.65-5.03) M/mm3 Hgb 12.2 12.1 (10.1-14.3) gm/dl Hct 36.8 37.0 (30.3-42.9) % Plt Count 200 181 (140-440) K/mm3 Lymph # (Auto) 1.2 (1.2-5.4) K/mm3 [place] # (Auto) 0.4 (0.0-0.8) K/mm3 Eos # (Auto) 0.1 (0.0-0.4) K/mm3 Baso # (Auto) 0.0 (0.0-0.1) K/mm3 Comprehensive Metabolic Panel 08/04/21 08/05/21 Range/Units 10:35 05:55 Sodium 139 (137-145) mmol/L Potassium 3.9 (3.6-5.0) mmol/L Chloride 108.3 H (98-107) mmol/L Carbon Dioxide 20 L (22-30) mmol/L BUN 7 (7-17) mg/dL Creatinine 0.8 0.7 (0.6-1.2) mg/dL Glucose 83 (65-100) mg/dL Calcium 9.2 (8.4-10.2) mg/dL AST 13 (5-40) units/L ALT 8 (7-56) units/L Alkaline Phosphatase 66 (35-129) units/L Total Protein 6.4 (6.3-8.2) g/dL Albumin 3.7 L (3.9-5) g/dL
--- NOTE | 2021-08-05 11:19 | Progress Note ---
Assessment and Plan Assessment and Plan - Patient Problems # CVA (cerebral vascular accident) -pt. is with new onset right side weakness and slurred speech and difficulty with words meaning. -CVA protocol: - CT head left mca remote infact -cta brain and neck are unremarkable. - telemetry neurology consulted - neuro check, - seizure precautions, - aspiration precautions, - lipid panel, statin therapy, -Eliquis Plus ASA 81 mg Plus Plavix as per cardiology due to high risk factors - physical therapy consulted, - Occupational Therapy consulted, -speech therapy consulted, - echocardiogram is noted with EF 35-40% with sever diastolic dysfunction, -MRI brain showed no acute event # NSTEMI (non-ST elevated myocardial infarction) -Chest pain protocol: - Serial cardiac enzymes, -EKG, telemetry, morphine, supplemental oxygen, nitro, - cardiology team consulted, - echocardiogram is as above # Atrial fibrillation -Rate control, - iv heparine to stop -restart her eliquis # Hypertension -Monitor blood pressure every shift, -permissive hypertension overnight. # DVT prophylaxis -SCD to bilateral lower extremities while in bed . # Advance care planning -disease education conducted, -care plan discussed, -diagnoses discussed, -prognosis discussed, -patient is full code, -patient daughter is at bedside and acknowledges understanding and agreement with care plan. PLAN 1- Recommend restart eliquis 2- Antilipid agent as per cardiology ASA plus Plavix due to high risk 3- Arrange for speech and Pt therapy will sign off Subjective Date of service: 08/05/21 Principal diagnosis: right side weaknesss and aphasia, AF ,CVD Interval history: she is doing well , not complaint with Plavix it result in bruses MRI brain is noted echo is with EF#35-40% with diastolic dysfunction s/p recent stent she denied CP or worsening right side weakness MRI showed no new CVA event she is with aphasia and right side weakness Objective - Vital Sign Vital Signs - 12hr 08/04/21 08/05/21 08/05/21 23:18 03:47 06:00 Temperature 98.2 F 98.2 F Pulse Rate 45 L 46 L 46 L Respiratory 14 14 Rate Blood Pressure 129/83 135/80 O2 Sat by Pulse 100 98 Oximetry 08/05/21 07:30 Temperature 98.2 F Pulse Rate 49 L Respiratory 16 Rate Blood Pressure 126/90 O2 Sat by Pulse 98 Oximetry - General Apperance Constitutional: comfortable - EENT EENT: PERRL, mucous membranes moist - Respiratory Respiratory: lungs clear, rhonchi - Cardiovascular Cardiovascular: other (irregular) Extremities: no peripheral edema bilat, no clubbing, cyanosis - Gastrointestinal Gastrointestinal: normoactive bowel sounds - Integumentary Integumentary: normal - Neurologic Cranial nerve examination: PERRL, EOMI, facial droop Speech examination: motor aphasia Detailed motor examination: other (slight right pronator drift) - Laboratory Findings CBC and BMP: 08/05/21 05:55 08/05/21 05:55 Abnormal Lab Findings: Abnormal Labs 08/02/21 08/02/21 08/02/21 12:48 12:48 12:48 WBC RDW 16.1 H [place] % (Auto) PT 20.7 H INR 1.61 H APTT 38.5 H Heparin Anti-Xa Level Chloride Carbon Dioxide POC Glucose Troponin T 0.212 H* Albumin 08/02/21 08/02/21 08/02/21 17:55 18:45 19:36 WBC RDW [place] % (Auto) PT INR APTT Heparin Anti-Xa Level Chloride Carbon Dioxide POC Glucose 63 L 150 H Troponin T 0.214 H* Albumin 08/02/21 08/02/21 08/03/21 20:49 22:44 06:53 WBC RDW [place] % (Auto) PT 18.5 H INR 1.39 H APTT 36.7 H Heparin Anti-Xa Level 1.92 H Chloride Carbon Dioxide POC Glucose Troponin T 0.229 H* Albumin 08/04/21 08/04/21 08/04/21 04:31 07:47 10:35 WBC RDW 16.0 H [place] % (Auto) PT INR APTT Heparin Anti-Xa Level 0.94 H Chloride Carbon Dioxide POC Glucose 119 H Troponin T Albumin 08/04/21 08/04/21 08/05/21 10:35 15:50 05:55 WBC 4.0 L RDW 16.2 H [place] % (Auto) 9.7 H PT 16.0 H INR 1.16 H APTT Heparin Anti-Xa Level Chloride Carbon Dioxide POC Glucose 134 H Troponin T Albumin 08/05/21 05:55 WBC RDW [place] % (Auto) PT INR APTT Heparin Anti-Xa Level Chloride 108.3 H Carbon Dioxide 20 L POC Glucose Troponin T Albumin 3.7 L
[2021-08-05] MEDS: APIXABAN 5 MG TAB PO SCH ×2 (12:47→23:31)
[2021-08-05] MEDS: ASPIRIN 81 MG TAB CHEW PO SCH (12:47)
[2021-08-05] MEDS: CLOPIDOGREL 75 MG TAB PO SCH (12:48)
[2021-08-05] MEDS: LOSARTAN 50 MG TAB PO SCH (12:48)
--- NOTE | 2021-08-05 17:22 | Discharge Summary ---
Providers - Providers Date of Admission: 08/02/21 14:15 Attending physician: RENAY HARPER MD 08/02/21 Consult to Cardiac Rehabilitation [CONS] Routine Reason For Exam: Phase I 08/02/21 14:52 Occupational Therapy Evaluate and Treat [CONS] Routine Comment: Reason For Exam: Neuro deficits Physical Therapy Evaluation and Treat [CONS] Routine Comment: Reason For Exam: Neuro deficits 08/02/21 14:55 Consult to Cardiology [CONS] Routine Consulting Provider: ISRRAEL RAMIREZ Reason For Exam: nstemi 08/02/21 17:31 Consult to Physician [CONS] Routine Comment: Consulting Provider: ISRRAEL RAMIREZ Physician Instructions: Reason For Exam: NSTEMI 08/03/21 08:36 Consult to Physician [CONS] Routine Comment: Consulting Provider: FLORA SEALS Physician Instructions: Reason For Exam: CVA Primary care physician: STUDENT DEVELOPMENT ADVISOR Hospitalization Condition: Stable Hospital course: Patient is currently at her baseline neurological status. She is alert and oriented. Vital signs stable. Remains in chronic atrial flutter with slow ventricular response even though beta-jim discontinued. Patient is stable to be discharged back to her family to be followed by her [place] primary care physician in 1 week, on 08/10/2021. [place] physician arranged for outpatient appointment. As per cardiology patient will continue aspirin 81 mg, Plavix 75 mg as well as Eliquis. She will report to her primary medical physicians in case she develops bruising. Patient is able to understand this plan well and she verbalized understanding. Disposition: 01 HOME / SELF CARE / HOMELESS Core Measure Documentation - Palliative Care Palliative Care/ Comfort Measures: Not Applicable - Stroke Discharge Requirements Statin for LDL = or >70 mg/dl on DC: Yes Anticoag for atrial fib/atrial flutter: Yes Antithrombotic for ischemic stroke: Yes Exam - Constitutional Vitals: Temp Pulse Resp BP Pulse Ox 97.4 F L 49 L 18 137/92 97 08/05/21 16:05 08/05/21 16:05 08/05/21 16:05 08/05/21 16:05 08/05/21 16:05 General appearance: Present: no acute distress - EENT Eyes: Present: PERRL, EOM intact ENT: hearing intact - Respiratory Respiratory effort: normal Respiratory: bilateral: CTA - Cardiovascular Rhythm: irregularly irregular - Extremities Extremities: No edema - Abdominal General gastrointestinal: Present: soft, non-tender, non-distended - Integumentary Integumentary: Absent: rash - Psychiatric Psychiatric: appropriate mood/affect - Neurologic Neurologic: other (Alert and oriented, subtle right right-sided hemiparesis, chronic sensory aphasia, neurological status appears to be at her baseline) Plan Activity: advance as tolerated, fall precautions Diet: low cholesterol, low salt Follow up with: PRIMARY CARE,MD [Primary Care Provider] - 7 Days Prescriptions: Aspirin [Aspirin BABY CHEW TAB] 81 mg PO QDAY #30 tab.chew Losartan [Cozaar] 50 mg PO QDAY #30 tablet Nitroglycerin [Nitrostat] 0.4 mg SL Q5M PRN #25 tablet PRN Reason: Chest Pain Clopidogrel [Plavix] 75 mg PO QDAY #30 tablet
--- NOTE | 2021-08-05 19:08 | Event Note ---
Date: 08/05/21 Brief progress note: Patient was doing well with mental/physical status at her baseline. She was discharged but just prior to leaving, patient complained of nausea and vomited. According to nurse, she also has a bit worsening her chronic aphasia. Family stated that her face looks more puffy. Discharge deferred and CT head without contrast ordered which showed no acute findings. On my exam, I did not find any new neurological deficits. She is alert and oriented. Sensory aphasia is unchanged. Mild right chronic lower facial weakness and right hemiparesis unchanged. Cardiac exam shows controlled atrial flutter. Lungs clear. Abdomen soft and nontender. We will continue to monitor her overnight and hopefully discharge tomorrow if remains stable Discussed with the nursing staff, patient as well as her and daughter.
--- NOTE | 2021-08-05 22:15 | Cat Scan Report ---
CT head/brain wo con INDICATION / CLINICAL INFORMATION: 51 years Female; Acute Altered Mental Status. TECHNIQUE: Routine CT head without contrast. All CT scans at this location are performed using CT dos e reduction for ALARA by means of automated exposure control. COMPARISON: The findings correlate with the previous CT of 08/02/2021. FINDINGS: BRAIN / INTRACRANIAL CONTENTS: There is continued extensive encephalomalacia within the left MCA dist ribution most consistent with old infarct. There is mild ex vacuo dilatation of the left lateral vent ricle. The findings correlate with the previous CT. There is no clear evidence of acute intracranial hemorrhage or significant mass effect. ORBITS: No significant abnormality of visualized orbits. SINUSES / MASTOIDS: No significant abnormality in the visualized paranasal sinuses or mastoid air werner ls. CRANIOCERVICAL JUNCTION: No significant abnormality. ADDITIONAL FINDINGS: None. IMPRESSION: 1. There is a persistent old left MCA infarct with extensive encephalomalacia. 2. There is no CT evidence of acute intracranial hemorrhage or significant overall change from 2020. Signer Name: Mark Madera MD Signed: 08/05/2021 10:10 PM Workstation Name: [id number]
[2021-08-06 05:48] LABS: Hematocrit 38.3 % (30.3-42.9); Hemoglobin 12.4 gm/dl (10.1-14.3); Mean Corpuscular HGB Conc 32 % (30-34); Mean Corpuscular Volume 88 fl (79-97); Platelet Count 216 K/mm3 (140-440); Red Blood Count 4.37 M/mm3 (3.65-5.03); Red Cell Distribution Width 16.2 % (13.2-15.2)
[2021-08-06 08:19] VITALS: BP 131/92
[2021-08-06] MEDS: ASPIRIN 81 MG TAB CHEW PO SCH (09:31)
[2021-08-06] MEDS: LOSARTAN 50 MG TAB PO SCH (09:31)
[2021-08-06] MEDS: CLOPIDOGREL 75 MG TAB PO SCH (09:31)
[2021-08-06] MEDS: APIXABAN 5 MG TAB PO SCH (09:31)
--- NOTE | 2021-08-06 10:11 | Electrocardiograph Report ---
[facility] Test Date: 2021-08-02 Test Time: 14:12:56 Pat Name: AFSHAN GODOY Department: Room: A454 Gender: F Neuropathologist: KINA : 1970 Requested By: DANIELLA HENSLEY Order Number: [id number] Reading MD: Rolando Yi Measurements Intervals [place] Rate: 45 P: TN: QRS: -63 QRSD: 153 T: -29 QT: 471 QTc: 419 Interpretive Statements Atrial fibrillation with slow ventricular response Right bundle branch block No previous ECG available for comparison Electronically Signed On 08-06-2021 10:11:13 EDT by Rolando Yi
--- NOTE | 2021-08-06 11:52 | Electrocardiograph Report ---
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
== END 2021-08-06 12:47 | disposition home or self-care (01) | DRG 281 ==
LOC: ED 12:41 → 4A 14:15
PROVIDERS: ADMIT Internal Medicine; ATTEND Internal Medicine
DX: I21.4 Non-ST elevation (NSTEMI) myocardial infarction (principal); I48.11 Longstanding persistent atrial fibrillation; I25.10 Atherosclerotic heart disease of native coronary artery without angina pectoris; I10 Essential (primary) hypertension; Z86.73 Personal history of transient ischemic attack (TIA), and cerebral infarction without residual deficits; Z82.49 Family history of ischemic heart disease and other diseases of the circulatory system; Z83.3 Family history of diabetes mellitus; Z20.822 Contact with and (suspected) exposure to COVID-19
CPT/HCPCS: 36415; 70450; 70496; 70498; 70551; 80048; 80053; 80061; 82565; 82962; 84443; 84484; 85014; 85018; 85025; 85027; 85049; 85520; 85610; 85670; 85730; 93005; 93306; 93880; G0378; J1644; J7030; Q9967

== ENCOUNTER 2021-10-02 10:37 | Emergency (ER) | payer OTHER ==
[2021-10-02] MEDS ORDERED: ONDANSETRON 4 MG/2 ML INJ IV ONE (11:20)
[2021-10-02] MEDS ORDERED: SODIUM CHLORIDE 0.9% 1000 ML 1,000 ML IV ONE (11:20)
[2021-10-02] MEDS ORDERED: MORPHINE 2 MG/1 ML INJ IV ONE (11:20)
--- NOTE | 2021-10-02 11:24 | Emergency Department Report ---
HPI - General Chief Complaint: Weakness Time Seen by Provider: 10/02/21 11:05 - HPI HPI: 51-year-old female with history of hypertension, CAD, A. fib on Eliquis, and history of left MCA stroke with residual right-sided weakness in March of this year on Plavix brought in by EMS for new onset of left lower lower abdominal pain and flank pain as well as nausea and vomiting which started this morning. The majority of the history was obtained from the patient's daughter, over the phone. She states that the patient is at her normal baseline mental status a lthough she has been somewhat globally weak for the past couple days. Her daughter states that the patient has been on her menstrual cycle for the last 2 days. Today she began to complain of significant left lower abdominal and flank pain which the patient states feels like menstrual cramping. She started vomiting this morning and for this reason her daughter called 911, at her baseline, the patient speaks only in partial sentences going back to her stroke. At present she complains only of the pain in her left flank and back. She denies any other associated symptoms. Nonetheless, further details of the HPI are limited due to her current clinical condition. She is fully vaccinated against COVID-19. ED Past Medical Hx - Past Medical History Hx Hypertension: Yes Hx CVA: Yes Hx Heart Attack/AMI: Yes - Surgical History Additional Surgical History: thrombectomy - Social History Smoking Status: Unknown if ever smoked - Medications Home Medications: Home Medications Medication Instructions Recorded Confirmed Last Taken Type Apixaban [Eliquis] 5 mg PO BID 08/03/21 10/02/21 10/02/21 08:00 History AtorvaSTATin [Lipitor] 40 mg PO QHS 08/03/21 10/02/21 10/01/21 21:00 History Aspirin [Aspirin BABY CHEW TAB] 81 mg PO QDAY #30 tab.chew 08/05/21 10/02/21 10/02/21 07:00 Rx Clopidogrel [Plavix] 75 mg PO QDAY #30 tablet 08/05/21 10/02/21 10/02/21 07:00 Rx Losartan [Cozaar] 50 mg PO QDAY #30 tablet 08/05/21 10/02/21 10/02/21 07:00 Rx Nitroglycerin [Nitrostat] 0.4 mg SL Q5M PRN #25 tablet 08/05/21 Unknown Rx Ascorbic Acid [Vitamin C] 100 mg PO DAILY 10/02/21 10/02/21 10/02/21 08:00 History Ubidecarenone [Ultra Coq10] 100 mg PO DAILY 10/02/21 10/02/21 10/02/21 08:00 History ED Review of Systems ROS: Stated complaint: WEAKNESS Other details as noted in HPI Constitutional: weakness. denies: chills, fever Eyes: denies: eye pain, vision change ENT: denies: throat pain, congestion Respiratory: denies: cough, shortness of breath Cardiovascular: denies: chest pain, palpitations Gastrointestinal: abdominal pain, nausea, vomiting. denies: diarrhea, constipation, melena Genitourinary: denies: dysuria, frequency Musculoskeletal: back pain. denies: joint swelling Skin: denies: rash, lesions Neurological: denies: headache, weakness, numbness, paresthesias Hematological/Lymphatic: denies: easy bleeding Physical Exam - Physical Exam Physical Exam: GENERAL: Well developed and well nourished. No acute distress. Slightly somnolent but easily arousable to voice HEAD: Normocephalic. No obvious signs of trauma. ENT: Dry mucous membranes. EYES: Extraocular movements are intact. Pupils are equal round and reactive to light bilaterally NECK: Supple. Full ROM is intact. Trachea is midline. LUNGS: Nonlabored breathing. Equal chest rise bilaterally. Clear to auscultation bilaterally. CARDIOVASCULAR: Regular rate and rhythm. No murmurs or rubs. VASCULAR: Cap refill < 2 seconds. 1+ edema of the bilateral lower extremities. ABDOMEN: Abdomen is soft and nondistended. There is tenderness in the left upper and lower quadrants of the abdomen without guarding or rebound tenderness. SKIN: Skin is warm and dry NEURO: Patient is awake and slightly somnolent but easily arousable to voice. Right-sided facial droop. Otherwise bias binding cutter II-XII grossly intact. There is weakness of the right upper and lower extremities without drift. Otherwise normal motor and sensory exam throughout. Speaks in single words or very short phrases only. MUSCULOSKELETAL: No obvious deformities. No significant tenderness. Normal ROM throughout. BACK/SPINE: No midline tenderness or step-offs of the C/T/L spine. Left CVA tenderness ED Medical Decision Making - Lab Data Result diagrams: 10/02/21 11:59 10/02/21 11:59 - EKG Data -: EKG Interpreted by Me - EKG Data 10/02/21 11:44 Atrial flutter with a rate of 57. Left axis deviation. LAFB. Right bundle branch block with associated changes. No significant ST segment abnormalities. Unchanged from prior EKG. - Radiology Data Radiology results: report reviewed - Medical Decision Making 51-year-old female with history of CAD, A. fib on Eliquis, and history of left MCA stroke in March of this year with residual right-sided deficits brought in by EMS from home due to acute onset of left-sided abdominal/flank pain with nausea and vomiting this morning. She is apparently been on her menstrual period for the past 2 days and has seemed more globally weak/tired than usual but her pain and vomiting did not start till this morning. The patient is at her baseline mental status although she seems slightly tired. She is afebrile and with normal vital signs. Physical examination reveals right sided facial droop and right-sided weakness which is her current baseline. She has no other focal neurologic deficits. She has very dry mucous membranes. She has left upper and lower abdominal tenderness without guarding or rebound. She has no mid spinal step-offs or tenderness. She does have left CVA tenderness. We will perform broad work-up with a full set of labs, EKG, chest x-ray, and CT of the abdomen pelvis with IV contrast to assess for evidence of colitis, diverticulitis, kidney stone, appendicitis, or other intra-abdominal or pelvic abnormality to explain the patient's current symptoms. We will give 1 L of IV fluids, small dose of morphine and Zofran and continue to monitor closely. Labs have resulted and reveal no significant leukocytosis or anemia. Creatinine is within normal range and there are no significant electrolyte abnormalities with the exception of potassium of 3.5. We will replete the potassium. Chest x-ray shows no acute abnormalities. Troponin is elevated at 0.198. On repeat assessment at 2:30 PM, the patient is much more alert. She reports her pain is much improved. I confirmed with the patient and her son at the bedside that she has been taking her prescribed Eliquis and Plavix and has not missed any doses. Given that her troponin is elevated, we will perform CTA of the chest/abdomen/pelvis to assess for evidence of pulmonary embolism, dissection, or other intrathoracic/intra-abdominal abnormality to explain the patient's presentation and labs CTA of the chest/abdomen/pelvis reveals no evidence of pulmonary embolism or aortic dissection but there is enlargement of the left kidney concerning for pyelonephritis. The renal arteries patent and there is no obstructing stone or evidence of pyelonephritis. However, the patient's urinalysis shows no evidence of infection. Nonetheless we will give 1 dose of IV cefepime given recent hospitalization. We will call [facility] for possible transfer/admission for NSTEMI. I spoke with the doctor from [facility] who indicates that the patient is excepted for admission to [facility] by Dr. Butterfield. The plan for transfer for admission was discussed with both the patient and her son at the [facility] and they both expressed understanding and agreement with this plan of care. Critical Care Time: No Critical care attestation.: If time is entered above; I have spent that time in minutes in the direct care of this critically ill patient, excluding procedure time. ED Disposition Clinical Impression: NSTEMI (non-ST elevated myocardial infarction), Atrial fibrillation, Elevated troponin, History of CVA (cerebrovascular accident), Pyelonephritis, Hypokalemia Disposition: 02 SHORT TERM HOSPITAL Is pt being admited?: No Referrals: PRIMARY CARE, [Primary Care Provider] - 3-5 Days
--- NOTE | 2021-10-02 11:53 | XRay Report ---
CHEST 1 VIEW INDICATION / CLINICAL INFORMATION: chest pain. COMPARISON: None available. FINDINGS: SUPPORT DEVICES: None. HEART / MEDIASTINUM: Borderline heart size. LUNGS / PLEURA: No significant pulmonary or pleural abnormality. No pneumothorax. ADDITIONAL FINDINGS: No significant additional findings. IMPRESSION: 1. No acute findings. Signer Name: Rebeka Saravia MD Signed: 10/02/2021 11:49 AM Workstation Name: [id number]
[2021-10-02 13:31] LABS: Basophils % (Auto) 0.1 % (0.0-1.8); Eosinophils % (Auto) 0.1 % (0.0-4.3); Hematocrit 38.1 % (30.3-42.9); Hemoglobin 12.2 gm/dl (10.1-14.3); Lymphocytes # (Auto) 0.7 K/mm3 (1.2-5.4); Lymphocytes % (Auto) 7.2 % (13.4-35.0); Mean Corpuscular HGB Conc 32 % (30-34); Mean Corpuscular Volume 87 fl (79-97); Monocytes # (Auto) 0.3 K/mm3 (0.0-0.8); Monocytes % (Auto) 3.2 % (0.0-7.3); Platelet Count 225 K/mm3 (140-440); Red Blood Count 4.38 M/mm3 (3.65-5.03); Red Cell Distribution Width 15.7 % (13.2-15.2)
[2021-10-02 13:41] LABS: INR 1.25 (0.87-1.13); Partial Thromboplastin Time 32.3 Sec. (24.2-36.6)
[2021-10-02 13:51] LABS: Alanine Aminotransferase 11 units/L (7-56); Albumin 4.2 g/dL (3.9-5); BUN/Creatinine Ratio 15; Blood Urea Nitrogen 15 mg/dL (7-17); Calcium 9.8 mg/dL (8.4-10.2); Hemolysis Index 4
[2021-10-02 14:00] LABS: Bilirubin,Direct < 0.2 mg/dL (0-0.2)
[2021-10-02] MEDS ORDERED: POTASSIUM CHLORIDE ER 20 MEQ TAB PO ONE (14:25)
[2021-10-02 14:51] LABS: Bilirubin,Urine NEG (Negative); Blood,Urine MOD (Negative); Color,Urine Red (Yellow); RBC,Urine > 182.0 /HPF (0.0-6.0); Urobilinogen,Urine < 2.0 mg/dL (<2.0)
[2021-10-02 14:52] LABS: WBC,Urine < 1.0 /HPF (0.0-6.0)
[2021-10-02 14:57] LABS: Amphetamine Screen,Urine Negative; Benzodiazepines Screen,Urine Negative; Cannabinoid Screen,Urine Negative; Cocaine Screen,Urine Negative; Methadone Screen,Urine Negative; Opiate Screen,Urine Negative
[2021-10-02 15:00] LABS: HDL Cholesterol 52 mg/dL (40-59); LDL Cholesterol,Direct 60 mg/dL (50-130)
--- NOTE | 2021-10-02 15:09 | Cat Scan Report ---
CTA CHEST, ABDOMEN, AND PELVIS WITH CONTRAST INDICATION / CLINICAL INFORMATION: assess for PE, DISSECTION PROTOCOL OMNI 300 100 ML. TECHNIQUE: Axial CT images were obtained through the chest, abdomen, and pelvis injection of 1 mL Omnipaque 300 IV contrast. 3 plane MIP and/or 3D reconstructions were produced. All CT scans at this location are p erformed using CT dose reduction for ALARA by means of automated exposure control. Any percent stenos is measurements are based on criteria similar to NASCET. COMPARISON: None available. FINDINGS: HEART: No significant abnormality. THORACIC AORTA: No significant abnormality. GREAT VESSELS: No significant abnormality. PULMONARY ARTERIES: No significant abnormality. ADDITIONAL CHEST FINDINGS: No significant abnormality. ABDOMINAL AORTA: No significant abnormality. RENAL ARTERIES: No significant abnormality. CELIAC ARTERY: No significant abnormality. SUPERIOR MESENTERIC ARTERY: No significant abnormality. INFERIOR MESENTERIC ARTERY: No significant abnormality. RIGHT ILIAC ARTERIES: No significant abnormality.. LEFT ILIAC ARTERIES: No significant abnormality.. ADDITIONAL ABDOMINOPELVIC FINDINGS: There is enlargement of the left kidney with diffuse decreased co rtical enhancement. SKELETAL STRUCTURES: No significant abnormality. IMPRESSION: 1. No aortic dissection identified. 2. No pulmonary embolism identified. 3. Enlargement of the left kidney with decreased cortical enhancement diffusely concerning for possib le pyelonephritis. The renal arteries appear patent. There is no obstructing stone or hydronephrosis. Signer Name: Hiro Gregory MD Signed: 10/02/2021 3:04 PM Workstation Name: [id number]
[2021-10-02] MEDS ORDERED: CEFEPIME/NS 2 GM/100 ML 2 GM/100 ML BAG IV ONE (15:39)
[2021-10-02 23:05] VITALS: BP 153/86
--- NOTE | 2021-10-03 12:50 | Electrocardiograph Report ---
[facility] Test Date: 2021-10-02 Test Time: 11:26:03 Pat Name: AFSHAN GODOY Department: Room: Gender: F Ammunition Components Inspector: DAMON : 1970 Requested By: SONDRA US Order Number: [id number] Reading MD: Oswaldo Randhawa Measurements Intervals [place] Rate: 57 P: TN: QRS: -22 QRSD: 159 T: -44 QT: 484 QTc: 471 Interpretive Statements Atrial fibrillation Right bundle branch block Lateral infarct, age indeterminate Compared to ECG 08/03/2021 12:04:13 Left anterior fascicular block no longer present Myocardial infarct finding still present Electronically Signed On 10-03-2021 12:50:10 EST by Oswaldo Randhawa
== END 2021-10-02 23:17 | disposition short-term general hospital (02) ==
LOC: ED 10:37
DX: I21.4 Non-ST elevation (NSTEMI) myocardial infarction (principal); I48.91 Unspecified atrial fibrillation; N12 Tubulo-interstitial nephritis, not specified as acute or chronic; E87.6 Hypokalemia; R74.8 Abnormal levels of other serum enzymes; Z86.73 Personal history of transient ischemic attack (TIA), and cerebral infarction without residual deficits; I10 Essential (primary) hypertension; Z98.890 Other specified postprocedural states; Z79.899 Other long term (current) drug therapy
CPT/HCPCS: 36415; 71045; 71275; 74174; 80048; 80061; 80076; 80307; 81001; 82140; 82962; 83690; 83735; 84484; 84703; 85025; 85610; 85730; 87040; 87086; 93005; 96361; 96365; 96375; 99285; J0692; J2270; J2405; J7030; Q9967; 80320; Q0162; G0480

== ENCOUNTER → 2021-11-03 | Emergency (ER) | payer OTHER ==
[2021-11-03 17:17] VITALS: BP 146/86
== END ==
LOC: ED 16:51
DX: N39.0 Urinary tract infection, site not specified (principal); R31.9 Hematuria, unspecified; Z53.21 Procedure and treatment not carried out due to patient leaving prior to being seen by health care provider

== ENCOUNTER 2021-11-05 01:20 | Emergency (ER) | payer OTHER ==
--- NOTE | 2021-11-05 01:49 | Emergency Department Report ---
ED CPR HPI - General Stated Complaint: CARDIAC ARREST Time Seen by Provider: 11/05/21 01:32 Source: family, EMS - History of Present Illness Initial Comments: Patient is 51 years old female with history of CVA, non-STEMI, atrial f ibrillation and hypertension. Patient brought to the emergency room via EMS from home and a full cardiac arrest, CPR in progress. EMS stated that patient was talking to her daughter and she left to get something and when she returned back approximately 2 minutes later found her mother unresponsive. According to the EMS CPR started by family member. EMS stated that ACLS protocol immediately started and patient was intubated by EMS on scene. EMS stated the initial rhythm was asystole and patient remained in asystole. Patient received epinephrine x3 by EMS. Upon arrival to the ER ACLS protocol continued. I confirmed to placement by good breath sound on both side. Patient received epinephrine, bicarb, calcium chloride. Blood glucose was 111. Unfortunately patient remained in asystole. Patient pronounced at 1:30 AM. For further information please refer to code sheet. Patient daughter informed about her mother's . - Related Data Home Medications Medication Instructions Recorded Confirmed Last Taken Apixaban [Eliquis] 5 mg PO BID 08/03/21 10/02/21 10/02/21 08:00 AtorvaSTATin [Lipitor] 40 mg PO QHS 08/03/21 10/02/21 10/01/21 21:00 Ascorbic Acid [Vitamin C] 100 mg PO DAILY 10/02/21 10/02/21 10/02/21 08:00 Ubidecarenone [Ultra Coq10] 100 mg PO DAILY 10/02/21 10/02/21 10/02/21 08:00 Previous Rx's Medication Instructions Recorded Last Taken Type Aspirin [Aspirin BABY CHEW TAB] 81 mg PO QDAY #30 tab.chew 08/05/21 10/02/21 07:00 Rx Clopidogrel [Plavix] 75 mg PO QDAY #30 tablet 08/05/21 10/02/21 07:00 Rx Losartan [Cozaar] 50 mg PO QDAY #30 tablet 08/05/21 10/02/21 07:00 Rx Nitroglycerin [Nitrostat] 0.4 mg SL Q5M PRN #25 tablet 08/05/21 Unknown Rx Allergies Allergy/AdvReac Type Severity Reaction Status Date / Time No Known Allergies Allergy Verified 08/02/21 14:02 ED Review of Systems ROS: Stated complaint: CARDIAC ARREST Other details as noted in HPI Comment: Unobtainable due to pts medical conditions ED Past Medical Hx - Past Medical History Hx Hypertension: Yes Hx CVA: Yes Hx Heart Attack/AMI: Yes - Surgical History Additional Surgical History: thrombectomy - Social History Smoking Status: Unknown if ever smoked - Medications Home Medications: Home Medications Medication Instructions Recorded Confirmed Last Taken Type Apixaban [Eliquis] 5 mg PO BID 08/03/21 10/02/21 10/02/21 08:00 History AtorvaSTATin [Lipitor] 40 mg PO QHS 08/03/21 10/02/21 10/01/21 21:00 History Aspirin [Aspirin BABY CHEW TAB] 81 mg PO QDAY #30 tab.chew 08/05/21 10/02/21 10/02/21 07:00 Rx Clopidogrel [Plavix] 75 mg PO QDAY #30 tablet 08/05/21 10/02/21 10/02/21 07:00 Rx Losartan [Cozaar] 50 mg PO QDAY #30 tablet 08/05/21 10/02/21 10/02/21 07:00 Rx Nitroglycerin [Nitrostat] 0.4 mg SL Q5M PRN #25 tablet 08/05/21 Unknown Rx Ascorbic Acid [Vitamin C] 100 mg PO DAILY 10/02/21 10/02/21 10/02/21 08:00 History Ubidecarenone [Ultra Coq10] 100 mg PO DAILY 10/02/21 10/02/21 10/02/21 08:00 History ED Physical Exam - General General appearance: other (CPR in progress.) - Head Head exam: Present: atraumatic, normocephalic, normal inspection - Eye Pupils: Present: other (5 mm fixed and dilated.) - Respiratory Respiratory exam: Present: other (No spontaneous breathing.) - Cardiovascular Cardiovascular Exam: Present: other (No spontaneous heart tone.) - GI/Abdominal GI/Abdominal exam: Present: soft - Neurological Exam Neurological exam: Present: other (CPR in progress.) Critical Care Time: Yes Critical care time in (mins) excluding proc time.: 35 Critical care attestation.: If time is entered above; I have spent that time in minutes in the direct care of this critically ill patient, excluding procedure time. ED Disposition Clinical Impression: Cardiopulmonary arrest Disposition: 20 Is pt being admited?: No Condition: Stable
[2021-11-05] MEDS ORDERED: SODIUM BICARB 8.4% 50 MEQ/50 ML SYRINGE IV ONE (05:22)
[2021-11-05] MEDS ORDERED: EPINEPHrine 1 MG/10 ML SYRINGE ONE (05:22)
== END 2021-11-05 03:13 ==
LOC: ED 01:20
DX: I46.9 Cardiac arrest, cause unspecified (principal); I10 Essential (primary) hypertension; Z86.73 Personal history of transient ischemic attack (TIA), and cerebral infarction without residual deficits
CPT/HCPCS: 92950; 99285; J0171; J3490